=== PATIENT | male | born 1955 | race Caucasian/White ===

== ENCOUNTER 2017-06-11 10:40 | Inpatient (IN) ==
--- NOTE | 2017-06-11 10:55 | Emergency Department Report ---
Lower Extremity Injury HPI - General Stated Complaint: foot/diabetic problem Time Seen by Provider: 06/11/17 10:55 - Related Data Home Medications Medication Instructions Recorded Confirmed Cilostazol 100 mg PO BID 06/11/17 06/11/17 Insulin Lispro Protamin/Lispro 14 unit SQ BID 06/11/17 06/11/17 [Humalog Mix 75-25 Kwikpen] Allergies Allergy/AdvReac Type Severity Reaction Status Date / Time Penicillins Allergy Severe cardiac Verified 06/11/17 11:44 arrest [facility] Patient Stated Medical History Glaucoma Yes: had injections in rosemarie eys Hypertension Yes Diabetes Mellitus Type 1 Yes Other GI Yes: gastritis Hx Renal Disease Yes: states that his kidneys were giving him trouble before Course Vital Signs Temperature 98.3 F 06/11/17 10:45 Pulse Rate 107 H 06/11/17 10:45 Respiratory Rate 18 06/11/17 10:45 Blood Pressure 205/98 H 06/11/17 10:45 Pulse Oximetry 100 06/11/17 10:45 Temperature 98.2 F 06/11/17 11:45 Pulse Rate 99 06/11/17 13:30 Respiratory Rate 22 06/11/17 13:30 Blood Pressure 138/76 06/11/17 13:30 Pulse Oximetry 99 06/11/17 13:30 Extremity Injury, Lower - Lab Data Result diagrams: 06/11/17 11:30 06/11/17 11:30 Lab Results 06/11/17 06/11/17 06/11/17 Range/Units 11:30 11:30 11:30 WBC 6.2 (4.5-11.0) T/MM3 RBC 3.35 L (4.50-5.90) M/MM3 Hgb 9.6 L (13.5-17.5) GM/DL Hct 29.8 L (41-53) % MCV 89.0 (80-100) UM3 MCH 28.7 (26-34) UUG MCHC 32.2 (31-37) GM/DL RDW Std Deviation 39.6 (36.9-50.2) FL Plt Count 487 H (130-400) T/MM3 MPV 8.8 L (9.4-12.4) UM3 Immature Gran % (Auto) 0.2 (0.0-0.5) % Neut % (Auto) 59.9 (33-66) % Lymph % (Auto) 28.0 (23-45) % [place] % (Auto) 8.5 (0-9.0) % Eos % (Auto) 2.9 (0-4) % Baso % (Auto) 0.5 (0-2) % Neut # (Auto) 3.7 (1.8-7.7) T/MM3 Lymph # (Auto) 1.7 (1-4.8) T/MM3 [place] # (Auto) 0.5 (0-0.8) T/MM3 Eos # (Auto) 0.2 (0-0.5) T/MM3 Baso # (Auto) 0.0 (0-0.2) T/MM3 Abs Immat Gran (auto) 0.01 (0.00-0.03) T/MM3 Turbidity < 20 (0-20) Sodium 144 (134-144) MEQ/L Potassium 5.6 H (3.6-5) MEQ/L Chloride 104 (98-107) MEQ/L Carbon Dioxide 28 (22-30) MEQ/L Anion Gap 12 (5-15) MEQ/L BUN 29.0 H (9-20) MG/DL Creatinine 1.6 H (0.8-1.5) MG/DL GFR Calculation 44 BUN/Creatinine Ratio 18 (6-26) RATIO Glucose 274 H (75-110) MG/DL Calculated Osmolality 293 H (261-280) MOSM/KG Calcium 9.3 (8.4-10.2) MG/DL Total Bilirubin 0.40 (0.20-1.30) MG/DL Icterus Index < 2 (0-7) AST 15 L (17-59) U/L ALT 19 L (21-72) U/L Alkaline Phosphatase 101 (38-126) U/L Total Protein 9.0 H (6.3-8.2) G/DL Albumin 4.2 (3.5-5.0) G/DL Globulin 4.8 H (2.4-3.6) G/DL Albumin/Globulin Ratio 0.9 L (1.1-2.2) RATIO Plasma Lactate 1.4 (0.6-2.2) MMOL/L Procalcitonin < 0.05 NG/ML Specimen Hemolysis < 15 (0-25) Disposition Clinical Impression: Diabetic foot ulcer Qualifiers: Diabetic foot ulcer location: midfoot Diabetes mellitus type: type 1 Laterality : right Non-pressure ulcer stage: with bone involvement without evidence of necrosis Qualified Code(s): E10.621 - Type 1 diabetes mellitus with foot ulcer; L97.416 - Non-pressure chronic ulcer of right heel and midfoot with bone involvement without evidence of necrosis; L97.416 - Non-pressure chronic ulcer of right heel and midfoot with bone involvement without evidence of necrosis [place] [facility] [place] Time of Disposition: 14:11 - Seen By: physician
[2017-06-11] MEDS ORDERED: SALINE FLUSH 10ml SYRINGE IVF PRN (11:00)
[2017-06-11] MEDS ORDERED: LEVOFLOXACIN PB 750 MG/150 ML BAG IV SCH (11:15)
[2017-06-11] MEDS ORDERED: SALINE FLUSH 10ml SYRINGE ONE (12:42)
[2017-06-11] MEDS ORDERED: GADOTERIDOL 279.3mg/ml - 15ml vial IVP ONE (12:43)
--- NOTE | 2017-06-11 13:33 | Magnetic Resonance Report ---
Indication: ulcer ball 4th 5th rule out osteo PROCEDURE: MR foot RT wo/w con: Encounter: Initial Comparison: Right foot MRI dated December 19, 2013 Technique: Multiplanar multisequence MR imaging of the right foot was performed with and without contrast. Contrast: 13 mL ProHance Findings: Prior amputation of the right fourth toe. There is a rim-enhancing abscess surrounding the fifth metatarsal head and proximal phalanx of the fifth toe. This is best seen on coronal image 10 and axial images 13 and 14. This measures approximately 2.3 x 1 cm in size on the axial images. There is a cutaneous tract noted extending to the plantar foot. Edema is again noted throughout the intrinsic foot musculature. The flexor and extensor tendons are grossly intact. Mild motion artifact present. There is diffuse edema throughout the fifth metatarsal bone. Small areas of edema within the fourth metatarsal head and fourth metatarsal base. Diffusely abnormal T1 hypointense, T2 hyperintense signal and enhancement throughout the proximal phalanx of the fifth toe. There is osseous erosion or destruction of the distal fifth metatarsal shaft and head. The fourth metatarsal neck is deformed which could be due to old trauma. There is enhancement within the fourth metatarsal head and to a lesser degree the shaft and base. Diffuse enhancement throughout the fifth metatarsal bone and proximal phalanx of the fifth toe. Subtle enhancement in the fifth middle and distal phalanges. No other areas of bone edema or bone enhancement appreciated. Impression: 1. Extensive osteomyelitis with complete involvement of the fifth metatarsal bone and proximal phalanx of the fifth toe with associated abscess. There is also osteomyelitic involvement of the fourth metatarsal head. 2. Less extensive edema and enhancement within the fourth metatarsal shaft and base is also suspicious for osteomyelitis. .
[2017-06-11 13:58] VITALS: BMI 23.2
[2017-06-11] MEDS ORDERED: VANCOMYCIN - PHARMACY CONSULT MC ONE (14:19)
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
--- NOTE | 2017-06-11 14:44 | Pharmacy Consult-Antibiotics ---
Pharmacy Consult-Vancomycin - Laboratory Information WBC 6.2 T/MM3 (4.5-11.0) 06/11/17 11:30 BUN 29.0 MG/DL (9-20) H 06/11/17 11:30 Creatinine 1.6 MG/DL (0.8-1.5) H 06/11/17 11:30 Procalcitonin < 0.05 NG/ML 06/11/17 11:30 - Consult Information Mr Zuñiga is admitted with osteomyelitis. Will begin vancomycin 1750mg IV q24h. Will continue to monitor and adjust accordingly. Thank you.
[2017-06-11] MEDS ORDERED: ONDANSETRON 4 MG/2 ML INJECTION IVP PRN (15:04)
[2017-06-11] MEDS: MEROPENEM 1 GM in NS 100 ML IV SCH (15:22)
[2017-06-11] MEDS: ACETAMINOPHEN 500 MG TABLET PO SCH ×3 (15:23→23:50)
[2017-06-11] MEDS: NS 1,000 ML IV SCH (15:28)
[2017-06-11] MEDS: ENOXAPARIN 30 MG/0.3 ML INJECTION SQ SCH (15:28)
[2017-06-11] MEDS ORDERED: GLUCOSE ORAL GEL 40% 37.5gm PO PRN (16:05)
[2017-06-11] MEDS ORDERED: DEXTROSE 50% SYRINGE 50ml (1 AMP) IVP PRN (16:05)
[2017-06-11] MEDS: INSULIN NPH SQ SCH (17:58)
[2017-06-11] MEDS: LISPRO SQ SCH (17:58)
[2017-06-11] MEDS: INSULIN ASPART 100unit/ml INJECTION SQ PRN (21:56)
[2017-06-12] MEDS: MEROPENEM 1 GM in NS 100 ML IV SCH ×2 (03:08→15:56)
[2017-06-12] MEDS: ACETAMINOPHEN 500 MG TABLET PO SCH ×5 (03:56→21:13)
[2017-06-12] MEDS: NS 1,000 ML IV SCH ×3 (05:50→19:25)
[2017-06-12] MEDS: INSULIN NPH SQ SCH ×2 (09:22→17:48)
[2017-06-12] MEDS: LISPRO SQ SCH ×2 (09:22→17:48)
[2017-06-12] MEDS: ENOXAPARIN 30 MG/0.3 ML INJECTION SQ SCH (09:42)
[2017-06-12] MEDS ORDERED: NS 1,000 ML IV SCH (11:15)
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
[2017-06-12] MEDS ORDERED: MIDAZOLAM 2mg/2ml INJECTION ONE (12:52)
[2017-06-12] MEDS ORDERED: FentaNYL 100 MCG/2 ML INJECTION ONE (12:52)
--- NOTE | 2017-06-12 13:00 | Pharmacy Consult-Antibiotics ---
Pharmacy Consult-Vancomycin - Laboratory Information WBC 6.2 T/MM3 (4.5-11.0) 06/11/17 11:30 BUN 20.0 MG/DL (9-20) 06/11/17 17:02 Creatinine 0.8 MG/DL (0.8-1.5) D 06/11/17 17:02 Procalcitonin < 0.05 NG/ML 06/11/17 11:30 - Consult Information VANCOMYCIN CONSULT: day 2 61 y.o. M started on Vancomycin protocol for osteomyelitis. goal Vancomycin trough range= 15 to 20 mcg/ml. Patient has had a significant improvement in SCr since admission. Vancomycin dose adjusted based on this improvement in SCr. adjusted to Vancomycin 1,250 mg IV Q12H. Pharmacy will continue to monitor and adjust. Thank you, Raquel Nava [facility]
[2017-06-12] MEDS ORDERED: PROPOFOL 20 ML ONE (14:08)
[2017-06-12] MEDS ORDERED: PROPOFOL 500 MG/50 ML VIAL IV ONE (14:25)
--- NOTE | 2017-06-12 14:56 | Anesthesia Postoperative Note ---
- Date and Time Date: 06/12/17 Time: 14:56 - Status Patient Participated in Evaluation: Patient Participated in Person Vital Signs: Temperature 97.8 F 06/12/17 10:45 Pulse Rate 96 06/12/17 11:22 Respiratory Rate 18 06/12/17 10:45 Blood Pressure 205/93 H 06/12/17 11:22 Pulse Oximetry 98 06/12/17 10:45 Respiratory Function: Airway Patent Cardiovascular Function: Regular Pulse EKG: Sinus Rhythm Mental Status: Alert and Oriented Pain Intensity: 0 Hydration: IV Infusing Complications During Recover: None Apparent - Follow-Up Instructions Instructions: Per Surgeon
[2017-06-12] MEDS ORDERED: Oxycodone/Acetaminophen 5/325 1 TAB PO PRN (16:00)
[2017-06-12] MEDS ORDERED: HYDROMORPHONE 2 MG/ML INJECTION IVP PRN (16:00)
--- NOTE | 2017-06-12 17:43 | Progress Note ---
- Date 06/12/17 Subjective: Having pain after surgery. Otherwise doing well. Objective Vital signs: Temperature 96.0 F L 06/12/17 15:35 Pulse Rate 88 06/12/17 16:50 Respiratory Rate 18 06/12/17 16:50 Blood Pressure 169/92 H 06/12/17 16:50 Pulse Oximetry 98 06/12/17 16:50 Height/Weight/BMI: Height 5 ft 7 in Weight 67.5 kg Body Mass Index 23.2 - Constitutional Present: no acute distress - Routine Respiratory Exam Present: CTA bilaterally - Routine Cardiovascular Exam Present: RRR - Routine Abdominal Exam Present: soft, normoactive bowel sounds, non distended, non tender - Routine Extremities Exam Comments: right foot in post-operative shoe - Routine Skin Exam Comments: no new rash - Routine Neurological Exam Present: alert, oriented X3, CN II-XII intact - Routine Psychiatric Exam Present: normal affect Results - Labs CBC & Chem 7: 06/11/17 11:30 06/11/17 17:02 Assessment and Plan (1) Diabetic foot ulcer Current visit: Yes Status: Acute Assessment and Plan: Impression Diabetic foot ulcer- high likelihood of osteomyelitis Hyperkalemia- POA- 5.6 Unintentional weight loss-20 pounds in 2 months Type II diabetes Hypertension Suspect CKD- Applications Scientist on admission 1.6 Chronic back pain Plan Superficial wound culture growing staph - on vanco and merrem (pcn allergy) - follow up on surgical cultures to hopefully de-escalate ATBX tomorrow. Await surgical margins for ATBX duration. Increased pain control post-operatively Follow blood sugars. Renal function improved. Hospital Course Summary Disclaimer: The visit summary below is not to be considered part of the above Progress Note. Hospital Course: 06/11/17 Impression Diabetic foot ulcer- high likelihood of osteomyelitis Hyperkalemia- POA- 5.6 Unintentional weight loss-20 pounds in 2 months Type II diabetes Hypertension Suspect CKD- Applications Scientist on admission 1.6 Chronic back pain 06/12/17 17:43 Superficial wound culture growing staph - on vanco and merrem (pcn allergy) - follow up on surgical cultures to hopefully de-escalate ATBX tomorrow. Await surgical margins for ATBX duration. Increased pain control post-operatively Follow blood sugars. Renal function improved.
[2017-06-13] MEDS: ACETAMINOPHEN 500 MG TABLET PO SCH ×7 (00:24→23:18)
[2017-06-13] MEDS: MEROPENEM 1 GM in NS 100 ML IV SCH ×4 (00:25→23:17)
[2017-06-13] MEDS: NS 1,000 ML IV SCH ×3 (03:52→23:18)
[2017-06-13] MEDS: LISPRO SQ SCH ×2 (10:08→18:41)
[2017-06-13] MEDS: INSULIN NPH SQ SCH ×2 (10:08→18:41)
[2017-06-13] MEDS: ENOXAPARIN 30 MG/0.3 ML INJECTION SQ SCH (10:09)
--- NOTE | 2017-06-13 10:12 | Orthopedic Progress Note ---
Date: Subjective/Severity of Illness: Pt is evaluated this AM using the [employer] communication device. Pt denies having much pain and has no medical complaints or concerns this AM. He has not been up with PT but they are planning on working with him today. No discharge plans have been discussed yet. Orthopedic Objective PO Vital signs: Temperature 97.3 F 06/13/17 08:00 Pulse Rate 97 06/13/17 08:00 Respiratory Rate 16 06/13/17 08:00 Blood Pressure 195/102 H 06/13/17 08:00 Pulse Oximetry 97 06/13/17 08:00 Height and Weight: Height 5 ft 7 in Weight 147 lb 14.883 oz Body Mass Index 23.2 - Constitutional General Appearance: Present: alert, no acute distress - Respiratory Exam Present: non-labored - Extremities Exam Extremities: Present: normal capillary refill (Toes are all that are visible this AM. Dressing intact and dry.) - Surgical Site Incision: dressing intact, no drainage - Neurological Exam Present: no deficits - Wound Management Right Foot Wound Type: Diabetic Foot Ulcer Surrounding Tissue Appearance: Bright Red Drainage Description: Serosanguineous Drainage Amount: Small Primary Dressing: Gauze Pad - Labs Result Diagrams: 06/13/17 03:51 06/13/17 03:51 Abnormal lab results 06/13/17 06/13/17 Range/Units 03:51 03:51 RBC 2.91 L (4.50-5.90) M/MM3 Hgb 8.3 L D (13.5-17.5) GM/DL Hct 25.9 L D (41-53) % Plt Count 405 H (130-400) T/MM3 MPV 8.7 L (9.4-12.4) UM3 Potassium 5.2 H D (3.6-5) MEQ/L Chloride 110 H (98-107) MEQ/L Glucose 145 H (75-110) MG/DL H & H 06/13/17 Range/Units 03:51 Hgb 8.3 L D (13.5-17.5) GM/DL Hct 25.9 L D (41-53) % Orthopedic Assessment and Plan (1) Osteomyelitis of right foot Status: Acute Assessment and Plan: S/P amputation of the right 4th and 5th MT ray on 06/12/17. On IV Meropenem and Vanco. Continue per hospitalist or get ID recommendations. Recommend continuing until path report is back. ASA and SCDs for DVT coverage. Mobilize with PT. WBAT on the heel. Discharge planning per Case Management. We will need to check his foot next week in wound clinic or ortho clinic if he is discharged this weekend. - Anticoagulation Therapy Anticoagulation: ASA 81 mg PO BID x6 weeks Hospital Course Summary Disclaimer: The visit summary below is not to be considered part of the above Progress Note. Hospital Course: 06/11/17 Impression Diabetic foot ulcer- high likelihood of osteomyelitis Hyperkalemia- POA- 5.6 Unintentional weight loss-20 pounds in 2 months Type II diabetes Hypertension Suspect CKD- Physician Surgeon on admission 1.6 Chronic back pain 06/12/17 17:43 Superficial wound culture growing staph - on vanco and merrem (pcn allergy) - follow up on surgical cultures to hopefully de-escalate ATBX tomorrow. Await surgical margins for ATBX duration. Increased pain control post-operatively Follow blood sugars. Renal function improved.
[2017-06-13] MEDS ORDERED: FUROSEMIDE 20 MG/2 ML INJECTION IVP ONE (12:17)
--- NOTE | 2017-06-13 12:30 | Progress Note ---
<Raegan Harvey - Last Filed: 06/13/17 13:19> - Date 06/13/17 Subjective: Oscar is seen this morning in follow up for his recent amputation to his right 4th and 5th metatarsal secondary to osteomyelitis on 06/12/17 as well as his uncontrolled diabetes. He is seen while sitting in his recliner, playing on his phone and watching TV. He denies any complaints or concerns including no chest pain, shortness of breath, abdominal pain, nausea, vomiting or dysuria. He does admit to some pain to his right foot, currently 5/10. He states he does not have much of an appetite but states that his bowels are moving. Labs revealed continued down trending of hemoglobin currently at 8.3. He denies any symptoms with his anemia including no palpitations, dizziness, lightheadedness or syncope. He continues on treatment for his osteomyelitis with Vancomycin and Merrem. Objective Vital signs: Temperature 97.3 F 06/13/17 08:00 Pulse Rate 97 06/13/17 08:00 Respiratory Rate 16 06/13/17 08:00 Blood Pressure 195/102 H 06/13/17 08:00 Pulse Oximetry 97 06/13/17 08:00 Height/Weight/BMI: Height 5 ft 7 in Weight 147 lb 14.883 oz Body Mass Index 23.2 - Constitutional Present: no acute distress, well nourished, well developed, cooperative - Routine HEENT Exam Head: Present: normocephalic, atraumatic Eye: Present: PERRL. Absent: conjunctival icterus ENT: Present: mucous membranes moist - Routine Respiratory Exam Present: CTA bilaterally. Absent: rales, respiratory distress, rhonchi, stridor , wheezes, crackles - Routine Cardiovascular Exam Present: RRR, S1, S2, no murmur - Routine Abdominal Exam Present: soft, normoactive bowel sounds, non tender, distended - Routine Extremities Exam Present: no edema, full ROM, pulses intact Comments: bandage to right foot clean, dry and intact; amputation site not evaluated during exam. - Routine Back/Spine/Pelvis Exam Back/Spine: Present: full ROM. Absent: vertebral tenderness - Routine Musculoskeletal Exam Musculoskeletal: Present: no clubbing or cyanosis, normal strength, moving extremities well - Routine Skin Exam Present: dry, warm. Absent: jaundice Comments: afebrile - Routine Neurological Exam Present: alert, oriented X3, moving all extremities, hearing grossly intact, normal speech. Absent: facial asymmetry - Routine Lymphatic Exam Lymphatic: Absent: lymphedema - Routine Psychiatric Exam Present: normal affect, cooperative Results - Labs CBC & Chem 7: 06/13/17 03:51 06/13/17 03:51 Assessment and Plan (1) Diabetic foot ulcer Current visit: Yes Status: Acute Assessment and Plan: Impression S/P amputation of 4th and 5th metatarsal on right foot by Dr. Gaffney - 06/12/17. Diabetic foot ulcer and osteomyelitis. Hyperkalemia- POA- 5.6 Unintentional weight loss-20 pounds in 2 months Type II diabetes, uncontrolled Hypertension, uncontrolled. CKD - stage III. Chronic back pain Protein calorie malnutrition, mild. GERD Plan - 06/13/17 (Mirakian) POD #1. Overall, Oscar appears to be doing well. Pain is well controlled. Continue pain medications with bowel motivation. Wound culture revealed multi-drug resistant MRSA. Based on sensitivities, will continue current antimicrobial treatment with Vancomycin and Merrem. Awaiting additional treatment recommendations from Dr. Juares. Appreciate her time and expertise. Will discuss with Dr. Glass possible discontinuation of merrem. Blood sugars remain variable. A1c significantly elevated at 12.7. Will continue current regimen with Humalog 75/25 10 units BID with sliding scale insulin as needed. Continue to monitor blood sugars closely. May consider consult to Dr. Rose for additional recommendations. Blood pressure elevated. History of hypertension without current treatment listed. Given comorbidities, will start lisinopril 10mg daily and metoprolol 12.5mg BID. Will place on telemetry to monitor cardiac function closely. Mild hyperkalemia noted with potassium at 5.2. History of hyperkalemia prior to admission. Will give lasix 20 IV x 1 dose now and recheck BMp in AM. Pre-ablumin low at 13.5 concerning for protein calorie malnutrition. Will consult dietary for additional recommendations. Encourage incentive spirometry for pulmonary toileting. Encourage participation in therapy to improve functional abilities. Hemoglobin continues to trend down at 8.3. Patient remains asymptomatic. Continue to monitor acute blood loss anemia. No evidence of acute bleeding. Recheck CBC and BMP in AM to monitor blood counts, electrolytes and renal function. DVT Prophylaxis: SCD's, Lovenox Resuscitation Status: Full Code - Time spent with patient Time with patient PN: 35 minutes Hospital Course Summary Disclaimer: The visit summary below is not to be considered part of the above Progress Note. Hospital Course: 06/11/17 Impression S/P amputation of 4th and 5th metatarsal on right foot by Dr. Gaffney - 06/12/17. Diabetic foot ulcer and osteomyelitis. Hyperkalemia- POA- 5.6 Unintentional weight loss-20 pounds in 2 months Type II diabetes, uncontrolled Hypertension, uncontrolled. CKD - stage III. Chronic back pain Protein calorie malnutrition, mild. GERD 06/12/17 17:43 Superficial wound culture growing staph - on vanco and merrem (pcn allergy) - follow up on surgical cultures to hopefully de-escalate ATBX tomorrow. Await surgical margins for ATBX duration. Increased pain control post-operatively Follow blood sugars. Renal function improved. Plan - 06/13/17 (Mirakian) POD #1. Overall, Oscar appears to be doing well. Pain is well controlled. Continue pain medications with bowel motivation. Wound culture revealed multi-drug resistant MRSA. Based on sensitivities, will continue current antimicrobial treatment with Vancomycin and Merrem. Awaiting additional treatment recommendations from Dr. Juares. Appreciate her time and expertise. Will discuss with Dr. Glass possible discontinuation of merrem. Blood sugars remain variable. A1c significantly elevated at 12.7. Will continue current regimen with Humalog 75/25 10 units BID with sliding scale insulin as needed. Continue to monitor blood sugars closely. May consider consult to Dr. Rose for additional recommendations. Blood pressure elevated. History of hypertension without current treatment listed. Given comorbidities, will start lisinopril 10mg daily and metoprolol 12.5mg BID. Will place on telemetry to monitor cardiac function closely. Mild hyperkalemia noted with potassium at 5.2. History of hyperkalemia prior to admission. Will give lasix 20 IV x 1 dose now and recheck BMp in AM. Pre-ablumin low at 13.5 concerning for protein calorie malnutrition. Will consult dietary for additional recommendations. Encourage incentive spirometry for pulmonary toileting. Encourage participation in therapy to improve functional abilities. Hemoglobin continues to trend down at 8.3. Patient remains asymptomatic. Continue to monitor acute blood loss anemia. No evidence of acute bleeding. Recheck CBC and BMP in AM to monitor blood counts, electrolytes and renal function. <Rhoda Glass - Last Filed: 06/13/17 14:26> - Date 06/13/17 Objective Vital signs: Results - Labs CBC & Chem 7: 06/13/17 03:51 06/13/17 03:51 Assessment and Plan (1) Diabetic foot ulcer Problem details: With osteomyelitis Current visit: Yes Status: Acute Assessment and Plan: I have independently evaluated and examined this patient. I reviewed the chart, the patient's history, and the [employer]ARN WE[employer]ENGTH TESTER/PA's documented findings as above. We discussed and formulated the assessment and plan as above with additions as below: Mr. Zuñiga describes a little pain in his left foot but had no other concerns when seen. Patient is alert, NAD Respirations nonlabored, good airflow, breath sounds clear Regular rhythm, extremities without edema, right foot dressed Surgical cultures pending; wound culture-MRSA Medications for blood pressure discussed as above. Await surgical cultures before modification in antibiotic regimen. Duration of antibiotics will depend on surgical margins. Lovenox increased to 40 mg daily for DVT prophylaxis. WBAT, ambulated without assistive device with therapy earlier today. In addition to above diagnoses please add: #1 acute/chronic normocytic anemia # 2 thrombocytosis, likely reactive; change [id number] with multiple complications and correct CKD to stage II Discussed with nursing who provide supplemental history, d/w Pharm D. MRI reviewed by myself. Hospital Course Summary Disclaimer: The visit summary below is not to be considered part of the above Progress Note.
[2017-06-13] MEDS: INSULIN ASPART 100unit/ml INJECTION SQ PRN ×2 (13:28→21:38)
[2017-06-13] MEDS: LISINOPRIL 10 MG TABLET PO SCH (13:36)
--- NOTE | 2017-06-13 13:56 | Operative Note ---
DATE OF SURGERY 06/12/2017 PREOPERATIVE DIAGNOSIS Right foot fourth and fifth metatarsal osteomyelitis. POSTOPERATIVE DIAGNOSIS Right foot fourth and fifth metatarsal osteomyelitis. PROCEDURE Right fourth fifth ray amputations. SURGEON Karrie Gaffney MD ANESTHESIA TIVA COMPLICATIONS None. TOURNIQUET TIME Please see anesthetic record. FLUIDS Please see anesthetic record. DESCRIPTION OF PROCEDURE Mr. Zuñiga and his right foot were identified and marked in the preoperative holding area. He was brought back to the operating suite and placed supine on the operating table. He was placed under general anesthesia. The right lower extremity was prepped and draped in my normal sterile fashion. Time-out was performed. The patient is on scheduled antibiotics. He had previous amputation to the fourth toe. He had open wound proximal to the previous fourth toe amputation. He also has a large diabetic foot ulcer on the plantar aspect over the fourth metatarsal. Both these wounds measured deep, greater than 2 cm. I started by connecting the dorsal to plantar wound at the most medial aspect of the wounds to connect them. I then continued the skin incision laterally to encompass the fifth toe and approximately 2 cm proximal to the fifth toe. With this, I removed the entire fifth toe through the fifth MTP joint. The fifth metatarsal itself was rather brittle and easily broke into several pieces. I then completed amputation of the fifth metatarsal using a pair of rongeurs. The fourth metatarsal did appear to be in better condition. It was removed with dissection sharply around the soft tissue, releasing the interarticular tarsal ligament. Its removal was also completed with a rongeur proximally. I did have to increase my dissection laterally in order to get the entire fifth metatarsal and also to allow for better skin closure. I cut back another probably 3 cm. After this, the wound was thoroughly irrigated with normal saline. The tourniquet was let down. Hemostasis was obtained with electrocautery. I did not see any signs of abscess and the soft tissue itself did not show any signs of necrosis. I did have to debulk some of the soft tissue anteriorly and with this I was able to get the skin edges reapproximated with 3-0 nylon suture. The first two were placed in a horizontal mattress fashion and then the remaining were placed in a simple interrupted fashion. The foot was cleaned and a sterile dressing was placed. The drapes were removed. He was allowed to awaken from general anesthesia and taken to the recovery room under the care of Anesthesia. He tolerated the procedure well. There were no complications. JADON
[2017-06-13] MEDS: ATORVASTATIN 20 MG TABLET PO SCH (21:37)
[2017-06-13] MEDS: ASPIRIN *EC* 81 MG TABLET PO SCH (21:37)
[2017-06-14] MEDS: NS 1,000 ML IV SCH ×2 (04:09→20:49)
[2017-06-14] MEDS: ACETAMINOPHEN 500 MG TABLET PO SCH ×6 (04:33→22:47)
[2017-06-14] MEDS: INSULIN ASPART 100unit/ml INJECTION SQ PRN ×4 (06:10→20:52)
[2017-06-14] MEDS: ENOXAPARIN 40 MG/0.4 ML INJECTION SQ SCH (08:15)
[2017-06-14] MEDS: LISINOPRIL 10 MG TABLET PO SCH (08:15)
[2017-06-14] MEDS: ASPIRIN *EC* 81 MG TABLET PO SCH (08:15)
[2017-06-14] MEDS: MEROPENEM 1 GM in NS 100 ML IV SCH ×2 (08:15→15:09)
[2017-06-14] MEDS: LISPRO SQ SCH (08:32)
[2017-06-14] MEDS: INSULIN NPH SQ SCH (08:32)
--- NOTE | 2017-06-14 11:03 | Progress Note ---
<BryanLeonila D - Last Filed: 06/14/17 11:00> - Date 06/14/17 Subjective: Patient is seen today in follow up. He sleeps during most of exam. He does awaken and reports feeling well. Denies pain. Chart reviewed for collateral information. Objective Vital signs: Temperature 96.7 F L 06/14/17 07:40 Pulse Rate 82 06/14/17 08:27 Respiratory Rate 20 06/14/17 07:40 Blood Pressure 135/80 06/14/17 07:40 Pulse Oximetry 97 06/14/17 07:40 Height/Weight/BMI: Height 1.7 m Weight 68.1 kg Body Mass Index 23.2 - Constitutional Present: no acute distress, well nourished, well developed, average body habitus - Routine HEENT Exam Head: Present: normocephalic, atraumatic Eye: Present: EOMI, PERRL ENT: Present: mucous membranes moist - Routine Respiratory Exam Present: decreased breath sounds, CTA bilaterally. Absent: rales, rhonchi, wheezes - Routine Cardiovascular Exam Present: RRR, S1, S2, no murmur - Routine Abdominal Exam Present: soft, normoactive bowel sounds, non distended, non tender - Routine Extremities Exam Present: no edema, non tender - Routine Musculoskeletal Exam Musculoskeletal: Present: normal strength, moving extremities well - Routine Skin Exam Present: intact, dry, warm - Routine Neurological Exam Present: alert, moving all extremities - Routine Psychiatric Exam Present: cooperative Results - Labs CBC & Chem 7: 06/14/17 03:30 06/14/17 03:30 Assessment and Plan (1) Diabetic foot ulcer Problem details: With osteomyelitis Current visit: Yes Status: Acute Assessment and Plan: Impression Diabetic foot ulcer- osteomyelitis/+MRSA (Pathology pending) s/p Right fourth fifth ray amputations. 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 Schreiber covering *POD #2 Continue Meropenem and Vanco with pharmacy following. Await pathology prior to narrowing therapy. Could potentially use Doxycycline on dismissal. *DM2, uncontrolled. A1c 12.6 Will change insulin to 70/30 NPH/Reg as he will likely need to be dismissed on this given unfunded status. Continue sliding scale. Increased him scheduled dosing to 12 units BID. *JULIA now resolved- SCr back to normal. Continue Lisinopril. *HTN controlled. Continue statin. *DVT prophylaxis- On LMWH. Decrease ASA to 81mg daily from BID. DVT Prophylaxis: Lovenox Resuscitation Status: Full Code - Time spent with patient Time with patient PN: 30 minutes Hospital Course Summary Disclaimer: The visit summary below is not to be considered part of the above Progress Note. Hospital Course: 06/11/17 Impression S/P amputation of 4th and 5th metatarsal on right foot by Dr. Gaffney - 06/12/17. Diabetic foot ulcer and osteomyelitis. Hyperkalemia- POA- 5.6 Unintentional weight loss-20 pounds in 2 months Type II diabetes, uncontrolled Hypertension, uncontrolled. CKD - stage III. Chronic back pain Protein calorie malnutrition, mild. GERD 06/12/17 17:43 Superficial wound culture growing staph - on vanco and merrem (pcn allergy) - follow up on surgical cultures to hopefully de-escalate ATBX tomorrow. Await surgical margins for ATBX duration. Increased pain control post-operatively Follow blood sugars. Renal function improved. Plan - 06/13/17 (Mirakian) POD #1. Overall, Oscar appears to be doing well. Pain is well controlled. Continue pain medications with bowel motivation. Wound culture revealed multi-drug resistant MRSA. Based on sensitivities, will continue current antimicrobial treatment with Vancomycin and Merrem. Awaiting additional treatment recommendations from Dr. Juares. Appreciate her time and expertise. Will discuss with Dr. Glass possible discontinuation of merrem. Blood sugars remain variable. A1c significantly elevated at 12.7. Will continue current regimen with Humalog 75/25 10 units BID with sliding scale insulin as needed. Continue to monitor blood sugars closely. May consider consult to Dr. Rose for additional recommendations. Blood pressure elevated. History of hypertension without current treatment listed. Given comorbidities, will start lisinopril 10mg daily and metoprolol 12.5mg BID. Will place on telemetry to monitor cardiac function closely. Mild hyperkalemia noted with potassium at 5.2. History of hyperkalemia prior to admission. Will give lasix 20 IV x 1 dose now and recheck BMp in AM. Pre-ablumin low at 13.5 concerning for protein calorie malnutrition. Will consult dietary for additional recommendations. Encourage incentive spirometry for pulmonary toileting. Encourage participation in therapy to improve functional abilities. Hemoglobin continues to trend down at 8.3. Patient remains asymptomatic. Continue to monitor acute blood loss anemia. No evidence of acute bleeding. Recheck CBC and BMP in AM to monitor blood counts, electrolytes and renal function. 06/14/17 11:13 06/14/17 Dr. Schreiber covering *POD #2 Continue Meropenem and Vanco with pharmacy following. Await pathology prior to narrowing therapy. Could potentially use Doxycycline on dismissal. *DM2, uncontrolled. A1c 12.6 Will change insulin to 70/30 NPH/Reg as he will likely need to be dismissed on this given unfunded status. Continue sliding scale. Increased him scheduled dosing to 12 units BID. *JULIA now resolved- SCr back to normal. Continue Lisinopril. *HTN controlled. Continue statin. *DVT prophylaxis- On LMWH. Decrease ASA to 81mg daily from BID. <Rhoda Glass - Last Filed: 06/14/17 15:33> - Date 06/14/17 Results - Labs CBC & Chem 7: 06/14/17 03:30 06/14/17 03:30 Assessment and Plan (1) Diabetic foot ulcer Problem details: With osteomyelitis Current visit: Yes Status: Acute Assessment and Plan: I have independently evaluated and examined this patient. I reviewed the chart, the patient's history, and the M[employer] HOUSE LOADER/PA's documented findings as above. We discussed and formulated the assessment and plan as above with additions as below: Please note patient is not being seen by Dr. Schreiber but instead by myself. Patient was alert when seen and reported no pain in his foot. Nursing reported minimal pain medication has been needed. Oral intake is good and he has ambulated in the room today without difficulty. Patient denied dyspnea. NAD, alert Respirations nonlabored with good airflow Abdomen is soft, nontender Discussed with orthro-no bone culture obtained but pathology pending for margins -hopefully available tomorrow. Given staph aureus in wound culture will discontinue gram-negative culture. Fasting glucose 173 with 2 hour after meals 233; insulin modified as above. Blood pressure improved. In addition to above problems please add: #1 acute on chronic anemia Hospital Course Summary Disclaimer: The visit summary below is not to be considered part of the above Progress Note. Addendum entered and electronically signed by Leonila Adams APRN 06/14/17 11:14 : Anemia- Likely reactive. Add iron/B Vitamin supplement.
--- NOTE | 2017-06-14 14:06 | Pharmacy Consult-Antibiotics ---
Pharmacy Consult-Vancomycin - Laboratory Information WBC 6.0 T/MM3 (4.5-11.0) 06/14/17 03:30 BUN 14.0 MG/DL (9-20) 06/14/17 03:30 Creatinine 1.1 MG/DL (0.8-1.5) 06/14/17 03:30 Procalcitonin < 0.05 NG/ML 06/11/17 11:30 Vancomycin Trough 23.64 UG/ML (15-20) H* 06/14/17 03:30 - Consult Information VANCOMYCIN CONSULT: day 4 61 y.o. male on Vancomycin for osteomyelitis. goal trough range= 15 to 20 mcg/ml , Vancomycin Trough = 23.64 mcg/ml. Today's SCr = 1.1 mg/dl. Will adjust dose to Vancomycin 1,500 mg IV q18hrs. Will continue to monitor and make adjustments accordingly. Thank you. Raquel Nava [facility]
[2017-06-14] MEDS: INSULIN NPH/REG 70/30 INJECTION SQ SCH (18:42)
[2017-06-14] MEDS: ATORVASTATIN 20 MG TABLET PO SCH (20:07)
[2017-06-14] MEDS: NIFEREX FORTE 150 CAPSULE PO SCH (20:07)
[2017-06-15] MEDS: ACETAMINOPHEN 500 MG TABLET PO SCH ×5 (04:16→18:22)
[2017-06-15] MEDS: INSULIN ASPART 100unit/ml INJECTION SQ PRN ×4 (06:27→20:43)
[2017-06-15] MEDS: LISINOPRIL 10 MG TABLET PO SCH (08:17)
[2017-06-15] MEDS: NIFEREX FORTE 150 CAPSULE PO SCH ×2 (08:18→20:44)
[2017-06-15] MEDS: INSULIN NPH/REG 70/30 INJECTION SQ SCH ×2 (08:18→18:46)
[2017-06-15] MEDS: ENOXAPARIN 40 MG/0.4 ML INJECTION SQ SCH (08:18)
[2017-06-15] MEDS: ASPIRIN *EC* 81 MG TABLET PO SCH (08:29)
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
--- NOTE | 2017-06-15 10:30 | Progress Note ---
<Candice Oakes - Last Filed: 06/15/17 10:26> - Date 06/15/17 Subjective: Patient is seen today in conjunction with Dr. Juares through the online leather stitcher. Patient has no complaints, specifically denies fever, pain, chest pain, shortness of breath, nausea and vomiting. He had a bowel movement yesterday. Dr. Juares discussed with him that he may need to have outpatient IV antibiotics and this may require a PICC line. Patient states he would be able to come in daily for outpatient IV infusions if necessary. Objective Vital signs: Temperature 97.1 F 06/15/17 08:00 Pulse Rate 80 06/15/17 08:31 Respiratory Rate 16 06/15/17 08:00 Blood Pressure 140/71 H 06/15/17 08:00 Pulse Oximetry 98 06/15/17 08:00 Height/Weight/BMI: Height 1.7 m Weight 67.9 kg Body Mass Index 23.2 - Constitutional Present: no acute distress, well nourished, well developed - Routine Respiratory Exam Present: CTA bilaterally. Absent: wheezes - Routine Cardiovascular Exam Present: RRR. Absent: murmur - Routine Abdominal Exam Present: soft, normoactive bowel sounds, non distended. Absent: tenderness - Routine Extremities Exam Present: no edema, normal capillary refill Comments: R foot with héctor wrap and boot. - Routine Skin Exam Present: dry, warm - Routine Neurological Exam Present: alert, oriented X3 - Routine Lymphatic Exam Lymphatic: Absent: adenopathy - Routine Psychiatric Exam Present: normal affect, cooperative Results - Labs CBC & Chem 7: 06/15/17 07:19 06/15/17 07:19 Microbiology Results: wound culture - + MRSA Blood cultures neg thus far Assessment and Plan (1) Diabetic foot ulcer Problem details: With osteomyelitis Current visit: Yes Status: Acute Assessment and Plan: Impression: Acute on chronic anemia Osteomyelitis R 4th and 5th metatarsal bones, and proximal phalanx of the fifth toe with associated Abscess, s/p amputation R 4th and 5th ray amputations 06/12/17. Superficial wound culture with MRSA. DM II, poorly controlled (Hgb A1c 12.6). Peripheral neuropathy secondary to diabetes. HTN. PCN allergy (tachycardia), however, per records, he has taken Augmentin prescribed by Dr. Mina for 2 weeks. Chronic back pain Suspect CK D-creatinine on admission 1.6 [id number]-EWQ-0.6 Plan: Per Dr. Juares: Continue Vancomycin. With his h/o poorly controlled DM, she would favor more aggressive IV antibiotics until the pathology margins are documented to be negative. She recommends cipro and flagyl orally, since he was on Invanz for 10 days prior to this wound culture. He could potentially be changed to Vancomycin 2gm IV daily for ease of outpatient infusion. As surgical path report may be resulted today, will hold off on starting a PICC line. Patient is agreeable to PICC if needed. Also reports he will have the ability to come in for daily infusions. He was started on iron yesterday for his acute on chronic anemia. Hemoglobin is stable. Insulin switched to NPH/regular 70/30 for cost savings. This change was made last evening, so we'll need to trend blood sugars out a bit more prior to adjusting. Hospital Course Summary Disclaimer: The visit summary below is not to be considered part of the above Progress Note. Hospital Course: Plan: Acute on chronic anemia Osteomyelitis R 4th and 5th metatarsal bones, and proximal phalanx of the fifth toe with associated Abscess, s/p amputation R 4th and 5th ray amputations 06/12/17. Superficial wound culture with MRSA. DM II, poorly controlled (Hgb A1c 12.6). Peripheral neuropathy secondary to diabetes. HTN. PCN allergy (tachycardia), however, per records, he has taken Augmentin prescribed by Dr. Mina for 2 weeks. Chronic back pain Suspect CK D-creatinine on admission 1.6 [id number]-QSU-4.6 06/12/17 Superficial wound culture growing staph - on vanco and merrem (pcn allergy) - follow up on surgical cultures to hopefully de-escalate ATBX tomorrow. Await surgical margins for ATBX duration. Increased pain control post-operatively Follow blood sugars. Renal function improved. 06/13/17 POD #1. Overall, Oscar appears to be doing well. Pain is well controlled. Continue pain medications with bowel motivation. Wound culture revealed multi-drug resistant MRSA. Based on sensitivities, will continue current antimicrobial treatment with Vancomycin and Merrem. Awaiting additional treatment recommendations from Dr. Juares. Appreciate her time and expertise. Will discuss with Dr. Glass possible discontinuation of merrem. Blood sugars remain variable. A1c significantly elevated at 12.7. Will continue current regimen with Humalog 75/25 10 units BID with sliding scale insulin as needed. Continue to monitor blood sugars closely. May consider consult to Dr. Rose for additional recommendations. Blood pressure elevated. History of hypertension without current treatment listed. Given comorbidities, will start lisinopril 10mg daily and metoprolol 12.5mg BID. Will place on telemetry to monitor cardiac function closely. Mild hyperkalemia noted with potassium at 5.2. History of hyperkalemia prior to admission. Will give lasix 20 IV x 1 dose now and recheck BMp in AM. Pre-ablumin low at 13.5 concerning for protein calorie malnutrition. Will consult dietary for additional recommendations. Encourage incentive spirometry for pulmonary toileting. Encourage participation in therapy to improve functional abilities. Hemoglobin continues to trend down at 8.3. Patient remains asymptomatic. Continue to monitor acute blood loss anemia. No evidence of acute bleeding. Recheck CBC and BMP in AM to monitor blood counts, electrolytes and renal function. 06/14/17 POD#2 *POD #2 Continue Meropenem and Vanco with pharmacy following. Await pathology prior to narrowing therapy. Could potentially use Doxycycline on dismissal. *DM2, uncontrolled. A1c 12.6 Will change insulin to 70/30 NPH/Reg as he will likely need to be dismissed on this given unfunded status. Continue sliding scale. Increased him scheduled dosing to 12 units BID. *JULIA now resolved- SCr back to normal. Continue Lisinopril. *HTN controlled. Continue statin. *DVT prophylaxis- On LMWH. Decrease ASA to 81mg daily from BID. 06/15/17 POD#[address] Juares: Continue Vancomycin. With his h/o poorly controlled DM, she would favor more aggressive IV antibiotics until the pathology margins are documented to be negative. She recommends cipro and flagyl orally, since he was on Invanz for 10 days prior to this wound culture. He could potentially be changed to Vancomycin 2gm IV daily for ease of outpatient infusion. As surgical path report may be resulted today, will hold off on starting a PICC line. Patient is agreeable to PICC if needed. Also reports he will have the ability to come in for daily infusions. He was started on iron yesterday for his acute on chronic anemia. Hemoglobin is stable. Insulin switched to NPH/regular 70/30 for cost savings. This change was made last evening, so we'll need to trend blood sugars out a bit more prior to adjusting. <Rhoda Glass - Last Filed: 06/15/17 17:19> - Date 06/15/17 Objective Vital signs: Results - Labs CBC & Chem 7: 06/15/17 07:19 06/15/17 07:19 Assessment and Plan (1) Diabetic foot ulcer Problem details: With osteomyelitis Current visit: Yes Status: Acute Assessment and Plan: I have independently evaluated and examined this patient. I reviewed the chart, the patient's history, and the ETHYLBENZENE CONVERTER OPERATOR/PA's documented findings as above. We discussed and formulated the assessment and plan as above with additions as below: Patient was seen with his daughter at the bedside. He denied dyspnea, nausea, or pain. Lungs are clear with good airflow, cardiac rhythm is regular There is no peripheral edema, lateral aspect of the right foot is wrapped. CRP 55.4; but sugars remain moderately elevated with fasting 243 today and postprandials 281 and 187 Pathology reviewed-suggests inflammation at margins; discussed with Dr. Juares. PICC line placed; Cipro/metronidazole initiated orally for expanded coverage- discussed with Dr. Juares. Anticipate 6 weeks vancomycin, pharmacy has recalculated daily dose at 2.5 g- initial daily dose given at 2 PM today. Case management working on assistance for other medications. Insulin increased to 15 units twice daily. Blood pressures remain elevated, lisinopril increased to 20 mg daily. Anticipate discharge tomorrow. Multiple discussions with case management and nursing throughout the day. Resuscitation Status: Full Code Hospital Course Summary Disclaimer: The visit summary below is not to be considered part of the above Progress Note.
[2017-06-15] MEDS: MetroNIDAZOLE 500 MG TABLET PO SCH ×2 (10:35→18:22)
[2017-06-15] MEDS: CIPROFLOXACIN 500 MG TABLET PO SCH ×2 (10:35→20:44)
--- NOTE | 2017-06-15 12:09 | Pharmacy Consult-Antibiotics ---
Pharmacy Consult-Vancomycin - Laboratory Information WBC 5.7 T/MM3 (4.5-11.0) 06/15/17 07:19 BUN 12.0 MG/DL (9-20) 06/15/17 07:19 Creatinine 1.0 MG/DL (0.8-1.5) 06/15/17 07:19 Procalcitonin < 0.05 NG/ML 06/11/17 11:30 Vancomycin Trough 23.64 UG/ML (15-20) H* 06/14/17 03:30 - Consult Information Discussed vancomycin therapy with Dr Juares. Will begin vancomycin 2500mg IV q24h. Will monitor closely and run the vancomycin doses in over 3 hours. Thank you.
[2017-06-15] MEDS: VANCOMYCIN 2,500 MG in NS 500ml 500 ML IV SCH (14:30)
[2017-06-15] MEDS ORDERED: LISINOPRIL 20 MG TABLET PO SCH (17:16)
--- NOTE | 2017-06-15 18:05 | Orthopedic Progress Note ---
Date: Subjective/Severity of Illness: Pt seen by Dr Gaffney and myself around noon. Pt is doing fairly well. Pain is not much of an issue. Dressing have been dry. He was seen by Dr Juares today. Orthopedic Objective PO Vital signs: Temperature 96.0 F L 06/15/17 15:25 Pulse Rate 83 06/15/17 15:38 Respiratory Rate 18 06/15/17 15:25 Blood Pressure 168/81 H 06/15/17 15:25 Pulse Oximetry 99 06/15/17 15:25 Height and Weight: Height 5 ft 7 in Weight 149 lb 11.102 oz Body Mass Index 23.2 - Constitutional General Appearance: Present: alert, no acute distress - Respiratory Exam Present: non-labored - Extremities Exam Extremities: Present: normal capillary refill - Surgical Site Incision: dressing intact, no drainage, other (New dressing applied. Wound looks good. Sutures in place.) - Neurological Exam Present: no deficits - Psychiatric Exam Present: alert - Wound Management Right Foot Wound Type: Diabetic Foot Ulcer Surrounding Tissue Appearance: Bright Red Drainage Description: Serosanguineous Drainage Amount: Small Primary Dressing: Gauze Pad - Labs Result Diagrams: 06/15/17 07:19 06/15/17 07:19 Abnormal lab results 06/15/17 06/15/17 Range/Units 07:19 07:19 RBC 2.85 L (4.50-5.90) M/MM3 Hgb 8.1 L (13.5-17.5) GM/DL Hct 25.4 L (41-53) % MPV 8.4 L (9.4-12.4) UM3 Eos % (Auto) 4.8 H (0-4) % Glucose 208 H (75-110) MG/DL C-Reactive Protein 55.4 H (0-9) MG/L H & H 06/13/17 06/14/17 06/15/17 Range/Units 03:51 03:30 07:19 Hgb 8.3 L D 8.1 L 8.1 L (13.5-17.5) GM/DL Hct 25.9 L D 24.9 L 25.4 L (41-53) % Orthopedic Assessment and Plan (1) Osteomyelitis of right foot Status: Acute Assessment and Plan: S/P amputation of the right 4th and 5th MT ray on 06/12/17. Antibiotics as outlined by Dr Juares. ASA and SCDs for DVT coverage. Mobilize with PT. WBAT on the heel. Discharge planning per Case Management. Hospital Course Summary Disclaimer: The visit summary below is not to be considered part of the above Progress Note. Hospital Course: Plan: Acute on chronic anemia Osteomyelitis R 4th and 5th metatarsal bones, and proximal phalanx of the fifth toe with associated Abscess, s/p amputation R 4th and 5th ray amputations 06/12/17. Superficial wound culture with MRSA. DM II, poorly controlled (Hgb A1c 12.6). Peripheral neuropathy secondary to diabetes. HTN. PCN allergy (tachycardia), however, per records, he has taken Augmentin prescribed by Dr. Mina for 2 weeks. Chronic back pain Suspect CK D-creatinine on admission 1.6 Vgsujmtnsrzx-PEW-2.6 06/12/17 Superficial wound culture growing staph - on vanco and merrem (pcn allergy) - follow up on surgical cultures to hopefully de-escalate ATBX tomorrow. Await surgical margins for ATBX duration. Increased pain control post-operatively Follow blood sugars. Renal function improved. 06/13/17 POD #1. Overall, Oscar appears to be doing well. Pain is well controlled. Continue pain medications with bowel motivation. Wound culture revealed multi-drug resistant MRSA. Based on sensitivities, will continue current antimicrobial treatment with Vancomycin and Merrem. Awaiting additional treatment recommendations from Dr. Juares. Appreciate her time and expertise. Will discuss with Dr. Glass possible discontinuation of merrem. Blood sugars remain variable. A1c significantly elevated at 12.7. Will continue current regimen with Humalog 75/25 10 units BID with sliding scale insulin as needed. Continue to monitor blood sugars closely. May consider consult to Dr. Rose for additional recommendations. Blood pressure elevated. History of hypertension without current treatment listed. Given comorbidities, will start lisinopril 10mg daily and metoprolol 12.5mg BID. Will place on telemetry to monitor cardiac function closely. Mild hyperkalemia noted with potassium at 5.2. History of hyperkalemia prior to admission. Will give lasix 20 IV x 1 dose now and recheck BMp in AM. Pre-ablumin low at 13.5 concerning for protein calorie malnutrition. Will consult dietary for additional recommendations. Encourage incentive spirometry for pulmonary toileting. Encourage participation in therapy to improve functional abilities. Hemoglobin continues to trend down at 8.3. Patient remains asymptomatic. Continue to monitor acute blood loss anemia. No evidence of acute bleeding. Recheck CBC and BMP in AM to monitor blood counts, electrolytes and renal function. 06/14/17 POD#2 *POD #2 Continue Meropenem and Vanco with pharmacy following. Await pathology prior to narrowing therapy. Could potentially use Doxycycline on dismissal. *DM2, uncontrolled. A1c 12.6 Will change insulin to 70/30 NPH/Reg as he will likely need to be dismissed on this given unfunded status. Continue sliding scale. Increased him scheduled dosing to 12 units BID. *JULIA now resolved- SCr back to normal. Continue Lisinopril. *HTN controlled. Continue statin. *DVT prophylaxis- On LMWH. Decrease ASA to 81mg daily from BID. 06/15/17 POD#[address] Juares: Continue Vancomycin. With his h/o poorly controlled DM, she would favor more aggressive IV antibiotics until the pathology margins are documented to be negative. She recommends cipro and flagyl orally, since he was on Invanz for 10 days prior to this wound culture. He could potentially be changed to Vancomycin 2gm IV daily for ease of outpatient infusion. As surgical path report may be resulted today, will hold off on starting a PICC line. Patient is agreeable to PICC if needed. Also reports he will have the ability to come in for daily infusions. He was started on iron yesterday for his acute on chronic anemia. Hemoglobin is stable. Insulin switched to NPH/regular 70/30 for cost savings. This change was made last evening, so we'll need to trend blood sugars out a bit more prior to adjusting.
[2017-06-15] MEDS: ATORVASTATIN 20 MG TABLET PO SCH (20:44)
[2017-06-15] MEDS: NS 1,000 ML IV SCH (20:46)
[2017-06-16] MEDS: ACETAMINOPHEN 500 MG TABLET PO SCH ×6 (00:02→18:39)
--- NOTE | 2017-06-16 07:51 | Orthopedic Progress Note ---
Date: Subjective/Severity of Illness: Sleeping comfortably. No issues reported by family or nurse. Orthopedic Objective PO Vital signs: Temperature 97.9 F 06/16/17 03:54 Pulse Rate 74 06/16/17 03:54 Respiratory Rate 16 06/16/17 03:54 Blood Pressure 127/69 06/16/17 03:54 Pulse Oximetry 96 06/16/17 03:54 Height and Weight: Height 5 ft 7 in Weight 149 lb 11.102 oz Body Mass Index 23.2 - Constitutional General Appearance: Present: alert, no acute distress - Respiratory Exam Present: non-labored - Extremities Exam Extremities: Present: normal capillary refill - Surgical Site Incision: dressing intact, no drainage, other (New dressing applied. Wound looks good. Sutures in place.) - Lymphatic Lymphatic: Absent: adenopathy - Neurological Exam Present: no deficits - Psychiatric Exam Present: alert - Wound Management Right Foot Wound Type: Diabetic Foot Ulcer Surrounding Tissue Appearance: Bright Red Drainage Description: Serosanguineous Drainage Amount: Small Primary Dressing: Gauze Pad - Labs Result Diagrams: 06/15/17 07:19 06/16/17 04:24 Abnormal lab results 06/15/17 Range/Units 07:19 Glucose 208 H (75-110) MG/DL C-Reactive Protein 55.4 H (0-9) MG/L H & H 06/13/17 06/14/17 06/15/17 Range/Units 03:51 03:30 07:19 Hgb 8.3 L D 8.1 L 8.1 L (13.5-17.5) GM/DL Hct 25.9 L D 24.9 L 25.4 L (41-53) % Orthopedic Assessment and Plan (1) Osteomyelitis of right foot Status: Acute Assessment and Plan: S/P amputation of the right 4th and 5th MT ray on 06/12/17. Antibiotics as outlined by Dr Juares. ASA and SCDs for DVT coverage. Mobilize with PT. WBAT on the heel. Discharge planning per Case Management. Hospital Course Summary Disclaimer: The visit summary below is not to be considered part of the above Progress Note. Hospital Course: Plan: Acute on chronic anemia Osteomyelitis R 4th and 5th metatarsal bones, and proximal phalanx of the fifth toe with associated Abscess, s/p amputation R 4th and 5th ray amputations 06/12/17. Superficial wound culture with MRSA. DM II, poorly controlled (Hgb A1c 12.6). Peripheral neuropathy secondary to diabetes. HTN. PCN allergy (tachycardia), however, per records, he has taken Augmentin prescribed by Dr. Mina for 2 weeks. Chronic back pain Suspect CK D-creatinine on admission 1.6 [id number]-6.6 06/12/17 Superficial wound culture growing staph - on vanco and merrem (pcn allergy) - follow up on surgical cultures to hopefully de-escalate ATBX tomorrow. Await surgical margins for ATBX duration. Increased pain control post-operatively Follow blood sugars. Renal function improved. 06/13/17 POD #1. Overall, Oscar appears to be doing well. Pain is well controlled. Continue pain medications with bowel motivation. Wound culture revealed multi-drug resistant MRSA. Based on sensitivities, will continue current antimicrobial treatment with Vancomycin and Merrem. Awaiting additional treatment recommendations from Dr. Juares. Appreciate her time and expertise. Will discuss with Dr. Glass possible discontinuation of merrem. Blood sugars remain variable. A1c significantly elevated at 12.7. Will continue current regimen with Humalog 75/25 10 units BID with sliding scale insulin as needed. Continue to monitor blood sugars closely. May consider consult to Dr. Rose for additional recommendations. Blood pressure elevated. History of hypertension without current treatment listed. Given comorbidities, will start lisinopril 10mg daily and metoprolol 12.5mg BID. Will place on telemetry to monitor cardiac function closely. Mild hyperkalemia noted with potassium at 5.2. History of hyperkalemia prior to admission. Will give lasix 20 IV x 1 dose now and recheck BMp in AM. Pre-ablumin low at 13.5 concerning for protein calorie malnutrition. Will consult dietary for additional recommendations. Encourage incentive spirometry for pulmonary toileting. Encourage participation in therapy to improve functional abilities. Hemoglobin continues to trend down at 8.3. Patient remains asymptomatic. Continue to monitor acute blood loss anemia. No evidence of acute bleeding. Recheck CBC and BMP in AM to monitor blood counts, electrolytes and renal function. 06/14/17 POD#2 *POD #2 Continue Meropenem and Vanco with pharmacy following. Await pathology prior to narrowing therapy. Could potentially use Doxycycline on dismissal. *DM2, uncontrolled. A1c 12.6 Will change insulin to 70/30 NPH/Reg as he will likely need to be dismissed on this given unfunded status. Continue sliding scale. Increased him scheduled dosing to 12 units BID. *JULIA now resolved- SCr back to normal. Continue Lisinopril. *HTN controlled. Continue statin. *DVT prophylaxis- On LMWH. Decrease ASA to 81mg daily from BID. 06/15/17 POD#[address] Juares: Continue Vancomycin. With his h/o poorly controlled DM, she would favor more aggressive IV antibiotics until the pathology margins are documented to be negative. She recommends cipro and flagyl orally, since he was on Invanz for 10 days prior to this wound culture. He could potentially be changed to Vancomycin 2gm IV daily for ease of outpatient infusion. As surgical path report may be resulted today, will hold off on starting a PICC line. Patient is agreeable to PICC if needed. Also reports he will have the ability to come in for daily infusions. He was started on iron yesterday for his acute on chronic anemia. Hemoglobin is stable. Insulin switched to NPH/regular 70/30 for cost savings. This change was made last evening, so we'll need to trend blood sugars out a bit more prior to adjusting.
[2017-06-16] MEDS: NS 1,000 ML IV SCH ×2 (08:03→13:33)
[2017-06-16] MEDS: ASPIRIN *EC* 81 MG TABLET PO SCH (08:34)
[2017-06-16] MEDS: ENOXAPARIN 40 MG/0.4 ML INJECTION SQ SCH (08:34)
[2017-06-16] MEDS: INSULIN NPH/REG 70/30 INJECTION SQ SCH ×2 (08:34→18:02)
[2017-06-16] MEDS: MetroNIDAZOLE 500 MG TABLET PO SCH ×2 (08:35→18:39)
[2017-06-16] MEDS: NIFEREX FORTE 150 CAPSULE PO SCH (08:35)
[2017-06-16] MEDS: CIPROFLOXACIN 500 MG TABLET PO SCH (08:35)
[2017-06-16] MEDS: INSULIN ASPART 100unit/ml INJECTION SQ PRN ×2 (10:22→16:50)
[2017-06-16 11:34] VITALS: RESP 18
[2017-06-16] MEDS: VANCOMYCIN 2,500 MG in NS 500ml 500 ML IV SCH (14:20)
[2017-06-16 15:58] VITALS: BP 180/88; PULSE 83; TEMP 96.1; O2SAT 99
--- NOTE | 2017-06-16 17:55 | Discharge Summary ---
<Candice Oakes - Last Filed: 06/16/17 17:51> Discharge Information Date of admission: 06/11/17 13:19 Anticipated date of discharge: 06/16/17 Attending Physician: Rhoda Glass MD Consults: Consulting Provider: Saúl Gaffney Reason For Exam: Right foot wound Consulting Provider: Ruth Juares Reason For Exam: foot wound - Discharge Diagnosis (1) Diabetic foot ulcer Status: Acute Acute on chronic anemia Osteomyelitis R 4th and 5th metatarsal bones, and proximal phalanx of the fifth toe with associated Abscess, s/p amputation R 4th and 5th ray amputations 06/12/17. Superficial wound culture with MRSA. DM II, poorly controlled (Hgb A1c 12.6). Peripheral neuropathy secondary to diabetes. HTN. PCN allergy (tachycardia), however, per records, he has taken Augmentin prescribed by Dr. Mina for 2 weeks. Chronic back pain Suspect CK D-creatinine on admission 1.6 Leueywerzohz-OWQ-4.6 - Procedures Procedures: DATE OF SURGERY 06/12/2017 PREOPERATIVE DIAGNOSIS Right foot fourth and fifth metatarsal osteomyelitis. POSTOPERATIVE DIAGNOSIS Right foot fourth and fifth metatarsal osteomyelitis. PROCEDURE Right fourth fifth ray amputations. SURGEON Karrie Gaffney MD - Laboratory Labs: Admission labs 06/13/17 06/13/17 03:51 03:51 WBC 6.4 RBC 2.91 L Hgb 8.3 L D Hct 25.9 L D Plt Count 405 H Sodium 143 Potassium 5.2 H D Chloride 110 H Carbon Dioxide 27 BUN 12.0 Creatinine 1.1 D Glucose 145 H Calcium 8.5 Dismissal labs 06/15/17 06/15/17 06/16/17 07:19 07:19 04:24 WBC 5.7 RBC 2.85 L Hgb 8.1 L Hct 25.4 L Plt Count 354 Sodium 142 Potassium 4.4 Chloride 107 Carbon Dioxide 28 BUN 12.0 Creatinine 1.1 GFR Calculation 68 Glucose 208 H Calcium 8.5 C-Reactive Protein 55.4 H - Microbiology Blood cultures were negative Wound culture: Staphylococcus, MRSA resistant to ciprofloxacin, clindamycin, erythromycin, levofloxacin, and oxacillin. Sensitive to doxycycline, gentamicin , linezolid, tetracycline, Bactrim, vancomycin - Radiology Radiology: Date of Exam: 06/11/17 Indication: ulcer ball 4th 5th rule out osteo PROCEDURE: MR foot RT wo/w con: Findings: Prior amputation of the right fourth toe. There is a rim-enhancing abscess surrounding the fifth metatarsal head and proximal phalanx of the fifth toe. This is best seen on coronal image 10 and axial images 13 and 14. This measures approximately 2.3 x 1 cm in size on the axial images. There is a cutaneous tract noted extending to the plantar foot. Edema is again noted throughout the intrinsic foot musculature. The flexor and extensor tendons are grossly intact. Mild motion artifact present. There is diffuse edema throughout the fifth metatarsal bone. Small areas of edema within the fourth metatarsal head and fourth metatarsal base. Diffusely abnormal T1 hypointense, T2 hyperintense signal and enhancement throughout the proximal phalanx of the fifth toe. There is osseous erosion or destruction of the distal fifth metatarsal shaft and head. The fourth metatarsal neck is deformed which could be due to old trauma. There is enhancement within the fourth metatarsal head and to a lesser degree the shaft and base. Diffuse enhancement throughout the fifth metatarsal bone and proximal phalanx of the fifth toe. Subtle enhancement in the fifth middle and distal phalanges. No other areas of bone edema or bone enhancement appreciated. Impression: 1. Extensive osteomyelitis with complete involvement of the fifth metatarsal bone and proximal phalanx of the fifth toe with associated abscess. There is also osteomyelitic involvement of the fourth metatarsal head. 2. Less extensive edema and enhancement within the fourth metatarsal shaft and base is also suspicious for osteomyelitis. - Pathology Surgical pathology report: Evaluations of the margins of the specimen is difficult as the specimen received in several parts. It appears that inflammatory changes focally extend to the soft tissue margins. The separate long fragment of bone is involved with chronic osteomyelitis of the apparent distal end. The apparent sampled proximal and demonstrates one area of active bone resorption and fibrosis without plasma cells or acute inflammation. The significance of this focus of bone remodeling is questionable, but continued close follow-up at this site is recommended. History of Present Illness HPI: Patient is a 61 year old male who has been admitted to the hospitalists services in 2013 with a right foot wound. He received outpatient wound treatment through April 2014 at which time he moved back to his original home country of [place]. He has lived there since that time. He reports that he has been having increased foot problems since April 21 at which time he had the foot wound "cleaned out". He reports he has been on Cilostazol 100mg (which appears to be a medication to help with circulation). He also reports he has been on injections of Invanz for the past 10 days. He decided to come back to the [facility] to get further assistance with his foot wound and arrived yesterday. Today he presented to the outpatient wound care center as he had been there in the past during 2013. He was recommended to come to the emergency room for acute evaluation and treatment. Upper studies were obtained. White count was normal 6.2, hemoglobin 9.6, hematocrit 29.8, platelet count 487. Sodium is 144, potassium slightly elevated at 5.6, BUN 29, creatinine 1.6, glucose 274. Venous lactate 1.4, pro calcitonin negative. An MRI of the right foot was obtained, and unfortunately did reveal extensive osteomyelitis with involvement in the 5th metatarsal and proximal phalange. He of the 5th toe associated with abscess. Dense of edema within the 4th metatarsal shaft as well. Blood cultures were obtained. Patient was placed on IV Levaquin. The hospitalist services were contacted and accepted patient for inpatient admission for further evaluation and treatment. It is expected that his stay will be greater than 2 overnights. Mr Zuñiga is seen today on arrival to the surgical unit. All information gained through online Romansh translation. When asked about recent healthcare changes since patient was here in 2013. He reports he has had a 20 pound weight loss over the past 2 months. He has received eye injections, for unknown reason. Likely secondary to diabetes. He reports also he has recently been told he was having problems with his kidneys. Objective Vital signs: Temperature 96.1 F L 06/16/17 15:58 Pulse Rate 83 06/16/17 16:00 Respiratory Rate 18 06/16/17 15:58 Blood Pressure 180/88 H 06/16/17 15:58 Pulse Oximetry 99 06/16/17 15:58 Height/Weight/BMI: Height 1.7 m Weight 66.6 kg Body Mass Index 23.2 - Constitutional Present: no acute distress, well nourished, well developed - Routine Respiratory Exam Present: CTA bilaterally. Absent: wheezes - Routine Cardiovascular Exam Present: RRR. Absent: murmur - Routine Abdominal Exam Present: soft, normoactive bowel sounds, non distended. Absent: tenderness - Routine Extremities Exam Present: no edema, normal capillary refill Comments: Right foot is wrapped with an Marcelo bandage and in a boot - Routine Skin Exam Present: dry, warm - Routine Neurological Exam Present: alert - Routine Lymphatic Exam Lymphatic: Absent: adenopathy - Routine Psychiatric Exam Present: normal affect, cooperative Hospital Course This is a general summary of the patient's hospital course. For more details refer to the complete medical record. Hospital course: Patient admitted for osteomyelitis. Consult was placed to COLTON Brown. He was started on vancomycin and Merrem. His wound culture revealed multi-drug resistant MRSA. He had right fourth and fifth ray amputation performed by Dr. Gaffney on 06/12/17. Prior to discharge his antibiotics were changed to Cipro and Flagyl orally and he was continued on the vancomycin. Dr. Juares would like patient to continue on these antibiotics for 6 weeks and she will see him in the wound clinic in 2-3 weeks. He'll have CBC and CMP weekly with results faxed to her office. He'll come in daily to the [facility] for his vancomycin infusion. [facility] pharmacy will manage Vanco dosing and monitoring. Ortho recommends aspirin 81 mg twice a day for 6 weeks. He will see Dr. Gaffney back in the wound clinic in one week. Patient was admitted with an A1c of 12.7. He was initially put on a regimen of Humalog 75/25 twice a day with sliding scale as needed. This was later switched to 70/30 NPH/regular as this will be cheaper for him post hospitalization. He had diabetic education during his stay. He was dismissed with a glucometer, test strips, lancets and syringes along with a voucher to help with his insulin. He was also placed on lisinopril and a statin for his diabetes. Metoprolol was also added in for tighter blood pressure control. He is to follow -up with Lin Hutchinson APRN at [facility] next week. He has an appointment tomorrow afternoon at [facility] to review his medications. Patient had mild hyperkalemia on admission. He was given Lasix for this and had no further elevations in potassium throughout his stay. His hemoglobin on admission was 9.6 down to 8.1 on dismissal. This will need to be followed on an outpatient basis. He was started on iron supplementation. Time spent with patient: greater than 35 minutes Discharge Plan - Discharge Disposition Discharge Date: 06/16/17 Disposition: 01 Discharged Home, Self-Care *Condition: Stable Reason For Visit (Visit label in EMR): ostomyelitis, diabetic foot ulcer right - Discharge Medications *Discharge Medications: New Aspirin *EC* [Ecotrin] 81 mg PO BID #84 tab Ciprofloxacin [Cipro] 500 mg PO Q12HR #84 tab Iron Polysacc/B-12/Folic Acid [Niferex Forte] 1 cap PO BID #60 cap Lisinopril [Prinivil] 20 mg PO DAILY #30 tab Metoprolol Tartrate [Lopressor] 12.5 mg PO BID #60 tab Vancomycin [Vancocin] 2,500 mg IV 1400 #42 vial Acetaminophen [Tylenol] 500 mg PO Q4H PRN #30 tab PRN Reason: Pain Atorvastatin [Lipitor] 20 mg PO HS #30 tab Insulin NPH/Reg 70/30 [Novolin 70/30] 17 unit SQ BIDI 30 Days #30 bottle MetroNIDAZOLE [Flagyl] 500 mg PO BIDWM #84 tab Oxycodone/Acetaminophen 5/325 [Percocet 5/325] 1 tab PO Q4H PRN #30 tab PRN Reason: Pain Discontinued Cilostazol 100 mg PO BID Insulin Lispro Protamin/Lispro [Humalog Mix 75-25 Kwikpen] 14 unit SQ BID - Discharge Packet/Instructions *Diet: diabetic/carbhohydrate controlled diet *Activity: per ortho *Pain Management/Treatment: Tylenol (acetaminophen) and Percocet as needed. Do not exceed 3000mg of acetaminophen in [address] Gaffney's office. *Wound Care: Per Dr. Gaffney. Additional Instructions: Come to the hospital daily for your antibiotic infusion as Cosme (shelter case manager) discussed with you. Your pain medication needs to be refilled through Dr. Gaffney's office. *Expected Signs/Symptoms: Decreasing pain, less drainage from wound *Notify Physician if: you develop fever or increasing pain *During Business Hours Contact: Dr. Gaffney's office or wound clinic *After Business Hours Contact: [facility] and ask for orthopedic doctor fabrication operator *Pending Lab/Results: No Pending Lab - Referrals/Follow Up *Referrals/Follow Up: Ruth Juares MD [Physician] - 3 Weeks (See Dr Juares in wound clinic) Lin Hutchinson APRN [Advanced Practice Nurse] - (Patient has an appointment with Lin GEORGE June 22. [facility] Saúl Gaffney MD [Physician] - 1 Week (see Dr. Gaffney in wound clinic) - Patient Handouts <Rhoda Glass - Last Filed: 06/16/17 19:35> Discharge Information Consults: - Discharge Diagnosis (1) Diabetic foot ulcer Status: Acute - Laboratory Labs: Objective Vital signs: Hospital Course This is a general summary of the patient's hospital course. For more details refer to the complete medical record. Hospital course: I have independently evaluated and examined this patient. I reviewed the chart, the patient's history, and the PRECISION OPTICS TECHNICIAN/PA's documented findings as above. We discussed and formulated the assessment and plan as above with additions as below: Oscar was seen with his daughter at the bedside. The telesales advisor service was utilized in my discussion with him in conjunction with case management's review of medications. The patient reports he was on blood pressure medications and possibly on something for circulation before he was hospitalized but he is unsure if he's had testing in [place] before hospitalization to evaluate peripheral circulation. He denied dyspnea or pain. Respirations are nonlabored with good airflow and clear breath sounds, abdomen is benign, right ankle is without edema and surgical site on the right foot is dressed. Stable for discharge on oral Cipro/Flagyl. PICC line was placed yesterday to permit continuation of vancomycin daily-dose 2.5 g every 24 hours. Patient will discharged following completion of today's dose and report to [facility] infusion center tomorrow to continue his IV antibiotics. Case management extensively involved in assisting with discharge medications. Time spent with patient: discharge greater than 30 minutes
== END 2017-06-16 20:05 | disposition home or self-care (01) | DRG 617 ==
LOC: ED 10:40 → SUATTDRO 13:19 → SRG 13:19
PROVIDERS: ADMIT Internal Medicine; ATTEND Internal Medicine

== ENCOUNTER 2017-06-24 10:38 | Inpatient (IN) ==
[2017-06-24] MEDS ORDERED: NOZIN NASAL SWAB NAS ONE (10:47)
[2017-06-24] MEDS ORDERED: PHARMACY CONSULT - OTHER MEDS MC SCH (11:00)
[2017-06-24] MEDS ORDERED: Oxycodone/Acetaminophen 5/325 1 TAB PO PRN (11:14)
[2017-06-24] MEDS ORDERED: ACETAMINOPHEN 500 MG TABLET PO PRN (11:14)
--- NOTE | 2017-06-24 11:21 | Pharmacy Consult-Antibiotics ---
Pharmacy Consult-Vancomycin - Consult Information Mr Lira has been a patient in Infusion Therapy and have been monitoring his vancomycin dose there. Will continue vancomycin 1500mg IV q24h. Thank you.
[2017-06-24] MEDS: NS 1,000 ML IV SCH (11:31)
[2017-06-24] MEDS: VANCOMYCIN 1,500 MG in NS 250ml 500 ML IV SCH (13:56)
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
[2017-06-24] MEDS: INSULIN ASPART 100unit/ml INJECTION SQ PRN ×2 (15:57→20:32)
[2017-06-24] MEDS ORDERED: INSULIN NPH/REG 70/30 INJECTION SQ SCH (17:00)
[2017-06-24] MEDS: INSULIN NPH/REG 70/30 INJECTION SQ SCH (17:45)
[2017-06-24] MEDS: MetroNIDAZOLE 500 MG TABLET PO SCH (17:45)
[2017-06-24] MEDS: HYDRALAZINE 20 MG/ML INJECTION IVP PRN (20:31)
[2017-06-24] MEDS: ATORVASTATIN 20 MG TABLET PO SCH (20:32)
[2017-06-24] MEDS: NIFEREX FORTE 150 CAPSULE PO SCH (20:32)
[2017-06-24] MEDS: CIPROFLOXACIN 500 MG TABLET PO SCH (20:32)
[2017-06-24] MEDS: ASPIRIN *EC* 81 MG TABLET PO SCH (20:32)
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
[2017-06-25] MEDS: NS 1,000 ML IV SCH ×5 (02:29→20:27)
[2017-06-25] MEDS: ASPIRIN *EC* 81 MG TABLET PO SCH ×2 (09:57→20:28)
[2017-06-25] MEDS: MetroNIDAZOLE 500 MG TABLET PO SCH ×2 (09:57→16:41)
[2017-06-25] MEDS: NIFEREX FORTE 150 CAPSULE PO SCH ×2 (09:58→20:27)
[2017-06-25] MEDS: CIPROFLOXACIN 500 MG TABLET PO SCH ×2 (09:58→20:27)
[2017-06-25] MEDS ORDERED: NS 1,000 ML IV SCH (11:30)
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
--- NOTE | 2017-06-25 13:10 | Progress Note ---
- Date 06/25/17 Subjective: Pt denies any change from yesterday, no acute complaints. Objective Vital signs: Temperature 98.4 F 06/25/17 11:56 Pulse Rate 92 06/25/17 11:56 Respiratory Rate 18 06/25/17 11:56 Blood Pressure 174/87 H 06/25/17 11:56 Pulse Oximetry 96 06/25/17 11:56 Height/Weight/BMI: Height 5 ft 7 in Weight 67.9 kg Body Mass Index 23.2 - Constitutional Present: no acute distress - Routine HEENT Exam Head: Present: normocephalic, atraumatic Eye: Present: EOMI, PERRL ENT: Present: mucous membranes moist - Routine Respiratory Exam Present: CTA bilaterally. Absent: wheezes - Routine Cardiovascular Exam Present: RRR, no murmur - Routine Abdominal Exam Present: soft, non distended, non tender - Routine Extremities Exam Present: no edema. Absent: cyanosis, clubbing - Routine Skin Exam Present: intact, dry. 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 Gaffney. Planning for I&D of foot wound today Will continue with diabetes management, current home insulin, Novolin NPH 70/30 , 20 units twice a day. Will plan to hold morning's dose of insulin preoperatively. Monitor Accuchecks Continue with PO Cipro twice a day, PO Flagyl twice a day, IV vancomycin for ongoing treatment of osteomyelitis with MRSA. Consult has been placed to Dr. Juares. She has been following patient in outpatient setting. Monitor blood pressure and hold lisinopril 20 in preop but cont. after that, Lopressor will 12.5 mg twice a day and Lipitor chronic meds Continue with aspirin twice a day for ongoing anticoagulation on the DVT prophylaxis. Monitor hemoglobin as patient does have anemia present on admission, continue on iron supplementation- Niferex BID Check CBC and BMP tomorrow morning to follow blood counts, renal function, electrolytes - Physician Narrative Narrative: Date: 06/25/17 Time: 1253 Hospital Course Summary Disclaimer: The visit summary below is not to be considered part of the above Progress Note. 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 Gaffney. Planning for I&D of foot wound tomorrow 06/25/17. Will continue with diabetes management, current home insulin, Novolin NPH 70/30 , 20 units twice a day. Will plan to hold tomorrow morning's dose of insulin preoperatively. Monitor Accuchecks, NPO after midnight Continue with PO Cipro twice a day, PO Flagyl twice a day, IV vancomycin for ongoing treatment of osteomyelitis with MRSA. Consult has been placed to Dr. Juares. She has been following patient in outpatient setting. Monitor blood pressure and continue on lisinopril 20, Lopressor will 12.5 mg twice a day and Lipitor chronic meds Continue with aspirin twice a day for ongoing anticoagulation on the DVT prophylaxis. Monitor hemoglobin as patient does have anemia present on admission, continue on iron supplementation- Niferex BID Check CBC and BMP tomorrow morning to follow blood counts, renal function, electrolytes Discussed with attending, Dr. Nayak Time of discharge medical care will return to primary care provider. [facility], Lin Evangelina-[employer] 06/25/17 13:10 Pt stable, following along with ortho. Consulted for medical management. Holding insulin and lisinopril this am d/t procedure. Will cont. afterwards.
[2017-06-25] MEDS ORDERED: PROPOFOL 1,000 MG/100 ML VIAL IV ONE (13:18)
[2017-06-25] MEDS ORDERED: FentaNYL 100 MCG/2 ML INJECTION ONE (13:23)
[2017-06-25] MEDS ORDERED: EPHEDRINE 50mg/ml INJECTION ONE (13:55)
[2017-06-25] MEDS ORDERED: HYDROMORPHONE 2 MG/ML INJECTION IVP PRN (14:14)
--- NOTE | 2017-06-25 14:18 | Anesthesia Postoperative Note ---
- Date and Time Date: 06/25/17 Time: 14:18 - Status Patient Participated in Evaluation: Patient Participated in Person Vital Signs: Temperature 98.4 F 06/25/17 11:56 Pulse Rate 92 06/25/17 11:56 Respiratory Rate 18 06/25/17 11:56 Blood Pressure 174/87 H 06/25/17 11:56 Pulse Oximetry 96 06/25/17 11:56 Respiratory Function: Airway Patent EKG: Sinus Rhythm Mental Status: Alert and Oriented Pain Intensity: 0 Hydration: IV Infusing Complications During Recover: None Apparent - Follow-Up Instructions Instructions: Per Surgeon
[2017-06-25] MEDS: VANCOMYCIN 1,500 MG in NS 250ml 500 ML IV SCH (16:35)
[2017-06-25] MEDS: LISINOPRIL 20 MG TABLET PO SCH (16:40)
[2017-06-25 16:54] VITALS: BMI 23.4
[2017-06-25] MEDS: INSULIN NPH/REG 70/30 INJECTION SQ SCH (18:22)
[2017-06-25] MEDS: HYDRALAZINE 20 MG/ML INJECTION IVP PRN (19:13)
[2017-06-25] MEDS: ATORVASTATIN 20 MG TABLET PO SCH (20:27)
[2017-06-26] MEDS: INSULIN ASPART 100unit/ml INJECTION SQ PRN ×3 (00:16→20:48)
--- NOTE | 2017-06-26 06:57 | Operative Note ---
DATE OF PROCEDURE 06/25/2017 PREOPERATIVE DIAGNOSIS Right foot amputation site surgical dehiscence. POSTOPERATIVE DIAGNOSIS Right foot amputation site surgical dehiscence. PROCEDURE Surgical irrigation, debridement with placement of wound VAC to right foot amputation site. SURGEON Saúl Gaffney MD DIRECTOR OF OPERATIONS SUPPORT None. COMPLICATIONS None. ANESTHESIA TIVA EBL AND FLUIDS Please see Anesthetic records. DESCRIPTION OF PROCEDURE Mr. Soraya Zuñiga and his right foot were identified and marked in the preoperative holding area. He was brought back to the operating suite and placed supine on the operating table. He was placed under general anesthesia. The right lower extremity was prepped and draped in my normal sterile fashion. Time-out was performed. The previous sutures were removed. He had previously had a 4th and 5th ray amputation. He had necrosis at the skin edges centrally within the wound. The most distal and most proximal aspects of the wound seemed to be healing well. I sharply debride all necrotic skin as well as subcutaneous tissue deep within the wound. There was no exposed bone deep within the wound. There was no foul odor and no signs of retained abscess. The wound was then thoroughly irrigated with normal saline using 3 liters total. Once I was ensured all necrotic tissue had been removed, our wound nurse came in to apply an instill VERAFLO wound VAC. He was then allowed to awaken from general anesthesia and taken to the recovery room under the care of Anesthesia. He tolerated the procedure well and there were no complications. JADON
[2017-06-26] MEDS: LISINOPRIL 20 MG TABLET PO SCH (08:27)
[2017-06-26] MEDS: CIPROFLOXACIN 500 MG TABLET PO SCH ×2 (08:28→20:48)
[2017-06-26] MEDS: ASPIRIN *EC* 81 MG TABLET PO SCH ×2 (08:28→20:49)
[2017-06-26] MEDS: NIFEREX FORTE 150 CAPSULE PO SCH ×2 (08:28→20:48)
[2017-06-26] MEDS: MetroNIDAZOLE 500 MG TABLET PO SCH ×2 (08:28→18:00)
[2017-06-26] MEDS: INSULIN NPH/REG 70/30 INJECTION SQ SCH ×2 (08:35→19:28)
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
[2017-06-26] MEDS: NS 1,000 ML IV SCH ×2 (10:33→14:25)
--- NOTE | 2017-06-26 11:42 | Progress Note ---
- Date 06/26/17 Subjective: Pt reports he is doing well after procedure yesterday. Denies n/v/d, f/c, cp or sob. Objective Vital signs: Temperature 96.2 F L 06/26/17 08:00 Pulse Rate 86 06/26/17 08:00 Respiratory Rate 18 06/26/17 08:00 Blood Pressure 143/75 H 06/26/17 08:00 Pulse Oximetry 98 06/26/17 08:00 Height/Weight/BMI: Height 5 ft 7 in Weight 67.9 kg Body Mass Index 23.4 - Constitutional Present: no acute distress - Routine HEENT Exam Head: Present: normocephalic, atraumatic Eye: Present: EOMI, PERRL ENT: Present: mucous membranes moist - Routine Respiratory Exam Present: CTA bilaterally. Absent: wheezes - Routine Cardiovascular Exam Present: RRR, no murmur - Routine Abdominal Exam Present: soft, non distended, non tender - Routine Extremities Exam Present: edema, amputation. Absent: cyanosis, clubbing - Routine Skin Exam Present: intact, dry. Absent: erythema - Routine Neurological Exam Present: alert, oriented X3 Results - Labs CBC & Chem 7: 06/24/17 11:31 06/25/17 07:53 Microbiology Results: Microbiology 06/25/17 13:40 Foot, Right Gram Stain - Final 06/25/17 13:40 Foot, Right Surgical Culture - Preliminary Culture Initiated - Results Pending Assessment and Plan (1) Wound dehiscence Current visit: Yes Status: Acute Assessment and Plan: Impression Right foot diabetic wound dehiscence-s/p I&D Osteomyelitis- right foot- currently under treatment Status post amputation of 4th and 5th metatarsals-06/12/17 Poorly controlled Type 2 DM -last hemoglobin A1c 12.7 (06/11/17) Anemia- Hgb 8.4 on admission HTN 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 Gaffney. Will continue with diabetes management, current home insulin, Novolin NPH 70/30 , 20 units twice a day. Monitor Accuchecks Continue with PO Cipro twice a day, PO Flagyl twice a day, IV vancomycin for ongoing treatment of osteomyelitis with MRSA. Consult has been placed to Dr. Juares. She has been following patient in outpatient setting. Cont. lisinopril 20, Lopressor 12.5 mg twice a day and Lipitor Continue with aspirin twice a day for ongoing anticoagulation on the DVT prophylaxis. Monitor hemoglobin as patient does have anemia present on admission, continue on iron supplementation- Niferex BID - Physician Narrative Narrative: Date: 06/26/17 Time: 1124 Hospital Course Summary Disclaimer: The visit summary below is not to be considered part of the above Progress Note. 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 Gaffney. Planning for I&D of foot wound tomorrow 06/25/17. Will continue with diabetes management, current home insulin, Novolin NPH 70/30 , 20 units twice a day. Will plan to hold tomorrow morning's dose of insulin preoperatively. Monitor Accuchecks, NPO after midnight Continue with PO Cipro twice a day, PO Flagyl twice a day, IV vancomycin for ongoing treatment of osteomyelitis with MRSA. Consult has been placed to Dr. Juares. She has been following patient in outpatient setting. Monitor blood pressure and continue on lisinopril 20, Lopressor will 12.5 mg twice a day and Lipitor chronic meds Continue with aspirin twice a day for ongoing anticoagulation on the DVT prophylaxis. Monitor hemoglobin as patient does have anemia present on admission, continue on iron supplementation- Niferex BID Check CBC and BMP tomorrow morning to follow blood counts, renal function, electrolytes Discussed with attending, Dr. Nayak Time of discharge medical care will return to primary care provider. [facility], Lin Evangelina-REMOTE BROADCAST ENGINEER 06/25/17 13:10 Pt stable, following along with ortho. Consulted for medical management. Holding insulin and lisinopril this am d/t procedure. Will cont. afterwards. 06/26/17 11:42 Pt stable post procedure. Cont. to follow with ortho and manage chronic conditions.
[2017-06-26] MEDS: VANCOMYCIN 1,500 MG in NS 250ml 500 ML IV SCH (13:27)
[2017-06-26] MEDS: HYDRALAZINE 20 MG/ML INJECTION IVP PRN (15:50)
--- NOTE | 2017-06-26 16:22 | Orthopedic Progress Note ---
Date: Date: 06/26/17 Time: 1618 Subjective/Severity of Illness: Pt is in bed using his phone and appears comfortable. No increased pain. Wound vac functioning. Orthopedic Objective PO Vital signs: Temperature 96 F L 06/26/17 15:00 Pulse Rate 86 06/26/17 16:00 Respiratory Rate 16 06/26/17 15:00 Blood Pressure 149/76 H 06/26/17 16:00 Pulse Oximetry 99 06/26/17 15:00 Height and Weight: Height 5 ft 7 in Weight 149 lb 14.629 oz Body Mass Index 23.4 - Constitutional General Appearance: Present: no acute distress, well developed, well nourished - Respiratory Exam Present: non-labored - Cardiovascular Exam Present: pedal pulses intact - Surgical Site Incision: dressing intact Drains Present: negative pressure therapy - Integumentary Exam Present: pink, warm, dry. Absent: erythema - Neurological Exam Present: no deficits - Psychiatric Exam Present: alert, normal affect - Labs Result Diagrams: 06/24/17 11:31 06/26/17 12:23 Abnormal lab results 06/26/17 06/26/17 Range/Units 12:23 12:23 Chloride 109 H (98-107) MEQ/L Glucose 202 H (75-110) MG/DL Calculated Osmolality 282 H (261-280) MOSM/KG Vancomycin Trough 10.63 L (15-20) UG/ML H & H 06/24/17 Range/Units 11:31 Hgb 8.4 L (13.5-17.5) GM/DL Hct 26.7 L (41-53) % Orthopedic Assessment and Plan (1) Wound dehiscence Status: Acute Assessment and Plan: Continue IV antibiotics and wound vac therapy. Hospitalist managing medical needs. BPs have been a little elevated. CM for discharge planning. Hospital Course Summary Disclaimer: The visit summary below is not to be considered part of the above Progress Note. 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 Gaffney. Planning for I&D of foot wound tomorrow 06/25/17. Will continue with diabetes management, current home insulin, Novolin NPH 70/30 , 20 units twice a day. Will plan to hold tomorrow morning's dose of insulin preoperatively. Monitor Accuchecks, NPO after midnight Continue with PO Cipro twice a day, PO Flagyl twice a day, IV vancomycin for ongoing treatment of osteomyelitis with MRSA. Consult has been placed to Dr. Juares. She has been following patient in outpatient setting. Monitor blood pressure and continue on lisinopril 20, Lopressor will 12.5 mg twice a day and Lipitor chronic meds Continue with aspirin twice a day for ongoing anticoagulation on the DVT prophylaxis. Monitor hemoglobin as patient does have anemia present on admission, continue on iron supplementation- Niferex BID Check CBC and BMP tomorrow morning to follow blood counts, renal function, electrolytes Discussed with attending, Dr. Nayak Time of discharge medical care will return to primary care provider. [facility], Lin Hutchinson-SHOSHANA 06/25/17 13:10 Pt stable, following along with ortho. Consulted for medical management. Holding insulin and lisinopril this am d/t procedure. Will cont. afterwards. 06/26/17 11:42 Pt stable post procedure. Cont. to follow with ortho and manage chronic conditions.
[2017-06-26] MEDS: ATORVASTATIN 20 MG TABLET PO SCH (20:48)
[2017-06-27] MEDS: NS 1,000 ML IV SCH ×2 (03:00→20:46)
--- NOTE | 2017-06-27 07:51 | Pharmacy Consult-Antibiotics ---
Pharmacy Consult-Vancomycin - Laboratory Information WBC 7.6 T/MM3 (4.5-11.0) 06/24/17 11:31 BUN 14.0 MG/DL (9-20) 06/26/17 12:23 Creatinine 1.2 MG/DL (0.8-1.5) 06/26/17 12:23 Vancomycin Trough 10.63 UG/ML (15-20) L 06/26/17 12:23 - Consult Information VANCOMYCIN CONSULT: (late entry - for 06/25/17) IMM is a 61 yo male whose right foot amputation site has necrotic subcutaneous tissue exposed within the wound which has dehisced. There is purple/red changes over the dorsum of the foot. There was no foul odor. The patient is currently on Ciprofloxacin 500 mg po q12h, Metronidazole 500 mg po twice a day, and Vancomycin. Vancomycin Trough = 10.63 mcg/ml. Today's S Cr = 1.2 mg/dl. Estimated Cr Cl ~ 60 ml?min. The vancomycin level was low, so I am changing the Vancomycin to 2,000 mg IV q24hrs starting 06/27/17 @0800. The pharmacy will continue to monitor and make adjustments accordingly. Thank you for the Vancomycin Dosing Protocol, Esteban Hugo, Pharmacist.
[2017-06-27] MEDS: INSULIN NPH/REG 70/30 INJECTION SQ SCH ×2 (09:13→17:07)
[2017-06-27] MEDS: CIPROFLOXACIN 500 MG TABLET PO SCH ×2 (09:13→20:45)
[2017-06-27] MEDS: LISINOPRIL 20 MG TABLET PO SCH (09:13)
[2017-06-27] MEDS: NIFEREX FORTE 150 CAPSULE PO SCH ×2 (09:14→20:45)
[2017-06-27] MEDS: ASPIRIN *EC* 81 MG TABLET PO SCH ×2 (09:14→20:45)
[2017-06-27] MEDS: MetroNIDAZOLE 500 MG TABLET PO SCH ×2 (09:14→17:07)
--- NOTE | 2017-06-27 10:58 | Orthopedic Progress Note ---
Date: Date: 06/27/17 Time: 1055 Subjective/Severity of Illness: No new complaints today. He denies pain. Orthopedic Objective Vital signs: Temperature 96.9 F 06/27/17 08:51 Pulse Rate 87 06/27/17 08:51 Respiratory Rate 16 06/27/17 08:51 Blood Pressure 162/86 H 06/27/17 08:51 Pulse Oximetry 98 06/27/17 08:51 Height and Weight: Height 5 ft 7 in Weight 66.5 kg Body Mass Index 23.4 - Constitutional General Appearance: Present: no acute distress, well developed, well nourished - Respiratory Exam Present: non-labored - Cardiovascular Exam Present: Regular Rate/Rhythm, pedal pulses intact Capillary Refill: < 2-3 Seconds - Extremities Exam Present: amputation. Absent: cyanosis, clubbing - Integumentary Exam Present: pink, warm, dry. Absent: erythema - Psychiatric Exam Present: alert - Wound Management Right Foot Comments: With wound VAC removed he has good granulation tissue present within the wound without signs of necrosis skin edges are wet and white in appearance. - Labs Result Diagrams: 06/24/17 11:31 06/27/17 07:52 Abnormal lab results 06/26/17 06/26/17 06/27/17 Range/Units 12:23 12:23 07:52 Sodium 145 H (134-144) MEQ/L Chloride 109 H 111 H (98-107) MEQ/L Glucose 202 H 125 H (75-110) MG/DL Calculated Osmolality 282 H (261-280) MOSM/KG Albumin 3.3 L (3.5-5.0) G/DL Vancomycin Trough 10.63 L (15-20) UG/ML H & H 06/24/17 Range/Units 11:31 Hgb 8.4 L (13.5-17.5) GM/DL Hct 26.7 L (41-53) % Orthopedic Assessment and Plan (1) Wound dehiscence Status: Acute Assessment and Plan: Continue IV antibiotics and wound vac therapy. Hospitalist managing medical needs. May be discharged with wound VAC change every 2-3 days and IV antibiotics per Dr. Juares. Hospital Course Summary Disclaimer: The visit summary below is not to be considered part of the above Progress Note. 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 Gaffney. Planning for I&D of foot wound tomorrow 06/25/17. Will continue with diabetes management, current home insulin, Novolin NPH 70/30 , 20 units twice a day. Will plan to hold tomorrow morning's dose of insulin preoperatively. Monitor Accuchecks, NPO after midnight Continue with PO Cipro twice a day, PO Flagyl twice a day, IV vancomycin for ongoing treatment of osteomyelitis with MRSA. Consult has been placed to Dr. Jaures. She has been following patient in outpatient setting. Monitor blood pressure and continue on lisinopril 20, Lopressor will 12.5 mg twice a day and Lipitor chronic meds Continue with aspirin twice a day for ongoing anticoagulation on the DVT prophylaxis. Monitor hemoglobin as patient does have anemia present on admission, continue on iron supplementation- Niferex BID Check CBC and BMP tomorrow morning to follow blood counts, renal function, electrolytes Discussed with attending, Dr. Nayak Time of discharge medical care will return to primary care provider. [facility] Lin Hutchinson-SHOSHANA 06/25/17 13:10 Pt stable, following along with ortho. Consulted for medical management. Holding insulin and lisinopril this am d/t procedure. Will cont. afterwards. 06/26/17 11:42 Pt stable post procedure. Cont. to follow with ortho and manage chronic conditions. Orthopedic Procedures - Orthopedic Splinting/Casting Injury #1 Comments: Wound VAC was removed to right fourth and fifth ray amputation site. A new wound VAC was applied with black foam. It was such 125 mmHg suction continuous. He tolerated this well.
[2017-06-27] MEDS: INSULIN ASPART 100unit/ml INJECTION SQ PRN ×2 (13:13→18:26)
--- NOTE | 2017-06-27 16:14 | Progress Note ---
- Date 06/27/17 Subjective: Pt has no acute complaints. Denies any cp, sob. Objective Vital signs: Temperature 96.2 F L 06/27/17 11:22 Pulse Rate 83 06/27/17 11:22 Respiratory Rate 18 06/27/17 11:22 Blood Pressure 167/86 H 06/27/17 11:22 Pulse Oximetry 97 06/27/17 11:22 Height/Weight/BMI: Height 5 ft 7 in Weight 66.5 kg Body Mass Index 23.4 - Constitutional Present: no acute distress - Routine HEENT Exam Head: Present: normocephalic, atraumatic Eye: Present: EOMI, PERRL - Routine Respiratory Exam Present: CTA bilaterally. Absent: rales - Routine Cardiovascular Exam Present: RRR, no murmur - Routine Abdominal Exam Present: soft, non distended, non tender - Routine Extremities Exam Present: no edema. Absent: cyanosis, clubbing - Routine Skin Exam Present: intact, dry. Absent: erythema - Routine Neurological Exam Present: alert, oriented X3 Results - Labs CBC & Chem 7: 06/24/17 11:31 06/27/17 07:52 Microbiology Results: Microbiology 06/25/17 13:40 Foot, Right Gram Stain - Final 06/25/17 13:40 Foot, Right Surgical Culture - Preliminary Staphylococcus aureus Assessment and Plan (1) Wound dehiscence Current visit: Yes Status: Acute Assessment and Plan: Impression Right foot diabetic wound dehiscence-s/p I&D Osteomyelitis- right foot- currently under treatment 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 Gaffney. Will continue with diabetes management, current home insulin, Novolin NPH 70/30 , 20 units twice a day. Monitor Accuchecks Continue with PO Cipro twice a day, PO Flagyl twice a day, IV vancomycin for ongoing treatment of osteomyelitis with MRSA. Consult has been placed to Dr. Juares. She has been following patient in outpatient setting. Cont. lisinopril 20, Lopressor 12.5 mg twice a day and Lipitor Continue with aspirin twice a day for ongoing anticoagulation on the DVT prophylaxis. Monitor hemoglobin as patient does have anemia present on admission, continue on iron supplementation- Niferex BID - Physician Narrative Narrative: Date: 06/27/17 Time: 1611 Hospital Course Summary Disclaimer: The visit summary below is not to be considered part of the above Progress Note. 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 Gaffney. Planning for I&D of foot wound tomorrow 06/25/17. Will continue with diabetes management, current home insulin, Novolin NPH 70/30 , 20 units twice a day. Will plan to hold tomorrow morning's dose of insulin preoperatively. Monitor Accuchecks, NPO after midnight Continue with PO Cipro twice a day, PO Flagyl twice a day, IV vancomycin for ongoing treatment of osteomyelitis with MRSA. Consult has been placed to Dr. Juares. She has been following patient in outpatient setting. Monitor blood pressure and continue on lisinopril 20, Lopressor will 12.5 mg twice a day and Lipitor chronic meds Continue with aspirin twice a day for ongoing anticoagulation on the DVT prophylaxis. Monitor hemoglobin as patient does have anemia present on admission, continue on iron supplementation- Niferex BID Check CBC and BMP tomorrow morning to follow blood counts, renal function, electrolytes Discussed with attending, Dr. Nayak Time of discharge medical care will return to primary care provider. [facility] Lin Hutchinson-SHOSHANA 06/25/17 13:10 Pt stable, following along with ortho. Consulted for medical management. Holding insulin and lisinopril this am d/t procedure. Will cont. afterwards. 06/26/17 11:42 Pt stable post procedure. Cont. to follow with ortho and manage chronic conditions. 06/27/17 16:13 No acute changes. Cont. to follow with ortho and manage chronic conditions.
[2017-06-27] MEDS: ATORVASTATIN 20 MG TABLET PO SCH (20:45)
[2017-06-28] MEDS: LISINOPRIL 20 MG TABLET PO SCH (08:59)
[2017-06-28] MEDS: NIFEREX FORTE 150 CAPSULE PO SCH ×2 (08:59→20:44)
[2017-06-28] MEDS: CIPROFLOXACIN 500 MG TABLET PO SCH ×2 (09:00→20:44)
[2017-06-28] MEDS: INSULIN NPH/REG 70/30 INJECTION SQ SCH ×2 (09:00→17:19)
[2017-06-28] MEDS: MetroNIDAZOLE 500 MG TABLET PO SCH ×2 (09:00→17:18)
[2017-06-28] MEDS: ASPIRIN *EC* 81 MG TABLET PO SCH ×2 (09:00→20:44)
--- NOTE | 2017-06-28 09:47 | Orthopedic Progress Note ---
Date: Date: 06/28/17 Time: 945 Subjective/Severity of Illness: No new complaints. No pain. Orthopedic Objective Vital signs: Temperature 98.1 F 06/28/17 07:25 Pulse Rate 85 06/28/17 07:25 Respiratory Rate 24 06/28/17 07:25 Blood Pressure 148/79 H 06/28/17 07:25 Pulse Oximetry 96 06/28/17 07:25 Height and Weight: Height 5 ft 7 in Weight 67.4 kg Body Mass Index 23.4 - Constitutional General Appearance: Present: no acute distress, well developed, well nourished - Respiratory Exam Present: non-labored - Cardiovascular Exam Capillary Refill: < 2-3 Seconds - Extremities Exam Present: no edema. Absent: cyanosis, clubbing - Integumentary Exam Present: pink, warm, dry. Absent: erythema - Neurological Exam Present: no deficits - Labs Result Diagrams: 06/24/17 11:31 06/27/17 07:52 H & H 06/24/17 Range/Units 11:31 Hgb 8.4 L (13.5-17.5) GM/DL Hct 26.7 L (41-53) % Orthopedic Assessment and Plan (1) Wound dehiscence Status: Acute Assessment and Plan: Continue IV antibiotics and wound vac therapy. Hospitalist managing medical needs. May be discharged with wound VAC change every 2-3 days and IV antibiotics per Dr. Juares. Hospital Course Summary Disclaimer: The visit summary below is not to be considered part of the above Progress Note. 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 Gaffney. Planning for I&D of foot wound tomorrow 06/25/17. Will continue with diabetes management, current home insulin, Novolin NPH 70/30 , 20 units twice a day. Will plan to hold tomorrow morning's dose of insulin preoperatively. Monitor Accuchecks, NPO after midnight Continue with PO Cipro twice a day, PO Flagyl twice a day, IV vancomycin for ongoing treatment of osteomyelitis with MRSA. Consult has been placed to Dr. Juares. She has been following patient in outpatient setting. Monitor blood pressure and continue on lisinopril 20, Lopressor will 12.5 mg twice a day and Lipitor chronic meds Continue with aspirin twice a day for ongoing anticoagulation on the DVT prophylaxis. Monitor hemoglobin as patient does have anemia present on admission, continue on iron supplementation- Niferex BID Check CBC and BMP tomorrow morning to follow blood counts, renal function, electrolytes Discussed with attending, Dr. Nayak Time of discharge medical care will return to primary care provider. [facility], Lin Evangelina-SHOSHANA 06/25/17 13:10 Pt stable, following along with ortho. Consulted for medical management. Holding insulin and lisinopril this am d/t procedure. Will cont. afterwards. 06/26/17 11:42 Pt stable post procedure. Cont. to follow with ortho and manage chronic conditions. 06/27/17 16:13 No acute changes. Cont. to follow with ortho and manage chronic conditions.
[2017-06-28] MEDS: INSULIN ASPART 100unit/ml INJECTION SQ PRN ×3 (10:38→20:37)
[2017-06-28] MEDS: NS 1,000 ML IV SCH (13:28)
--- NOTE | 2017-06-28 14:02 | Progress Note ---
- Date 06/28/17 Subjective: Pt doing well, has no acute complaints, denies n/v/d, f/c. Objective Vital signs: Temperature 96.4 F L 06/28/17 11:32 Pulse Rate 79 06/28/17 11:32 Respiratory Rate 16 06/28/17 11:32 Blood Pressure 177/86 H 06/28/17 11:32 Pulse Oximetry 98 06/28/17 11:32 Height/Weight/BMI: Height 5 ft 7 in Weight 67.4 kg Body Mass Index 23.4 - Constitutional Present: no acute distress - Routine HEENT Exam Head: Present: normocephalic, atraumatic Eye: Present: EOMI, PERRL - Routine Cardiovascular Exam Present: RRR, no murmur - Routine Abdominal Exam Present: soft, non distended, non tender - Routine Extremities Exam Present: no edema. Absent: cyanosis, clubbing - Routine Skin Exam Present: intact, dry. 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 Gaffney. Will continue with diabetes management, current home insulin, Novolin NPH 70/30 , 20 units twice a day. Monitor Accuchecks Continue with PO Cipro twice a day, PO Flagyl twice a day, IV vancomycin for ongoing treatment of osteomyelitis with MRSA. Consult has been placed to Dr. Juares. She has been following patient in outpatient setting. Cont. lisinopril 20, Lopressor 12.5 mg twice a day and Lipitor Continue with aspirin twice a day for ongoing anticoagulation on the DVT prophylaxis. Monitor hemoglobin as patient does have anemia present on admission, continue on iron supplementation- Niferex BID - Physician Narrative Narrative: Date: 06/28/17 Time: 1401 Hospital Course Summary Disclaimer: The visit summary below is not to be considered part of the above Progress Note. 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 Gaffney. Planning for I&D of foot wound tomorrow 06/25/17. Will continue with diabetes management, current home insulin, Novolin NPH 70/30 , 20 units twice a day. Will plan to hold tomorrow morning's dose of insulin preoperatively. Monitor Accuchecks, NPO after midnight Continue with PO Cipro twice a day, PO Flagyl twice a day, IV vancomycin for ongoing treatment of osteomyelitis with MRSA. Consult has been placed to Dr. Juares. She has been following patient in outpatient setting. Monitor blood pressure and continue on lisinopril 20, Lopressor will 12.5 mg twice a day and Lipitor chronic meds Continue with aspirin twice a day for ongoing anticoagulation on the DVT prophylaxis. Monitor hemoglobin as patient does have anemia present on admission, continue on iron supplementation- Niferex BID Check CBC and BMP tomorrow morning to follow blood counts, renal function, electrolytes Discussed with attending, Dr. Nayak Time of discharge medical care will return to primary care provider. [facility], Lin Hutchinson-SUPERVISOR DOCK 06/25/17 13:10 Pt stable, following along with ortho. Consulted for medical management. Holding insulin and lisinopril this am d/t procedure. Will cont. afterwards. 06/26/17 11:42 Pt stable post procedure. Cont. to follow with ortho and manage chronic conditions. 06/27/17 16:13 No acute changes. Cont. to follow with ortho and manage chronic conditions.
[2017-06-28] MEDS: HYDRALAZINE 20 MG/ML INJECTION IVP PRN ×2 (15:43→20:42)
[2017-06-28] MEDS: ATORVASTATIN 20 MG TABLET PO SCH (20:44)
[2017-06-29] MEDS: NS 1,000 ML IV SCH ×2 (00:08→09:42)
[2017-06-29] MEDS: INSULIN NPH/REG 70/30 INJECTION SQ SCH ×2 (09:38→17:52)
[2017-06-29] MEDS: LISINOPRIL 20 MG TABLET PO SCH (09:41)
[2017-06-29] MEDS: CIPROFLOXACIN 500 MG TABLET PO SCH ×2 (09:42→21:05)
[2017-06-29] MEDS: NIFEREX FORTE 150 CAPSULE PO SCH ×2 (09:42→21:05)
[2017-06-29] MEDS: ASPIRIN *EC* 81 MG TABLET PO SCH ×2 (09:42→21:07)
[2017-06-29] MEDS: MetroNIDAZOLE 500 MG TABLET PO SCH ×2 (09:42→17:53)
[2017-06-29] MEDS: INSULIN ASPART 100unit/ml INJECTION SQ PRN ×2 (11:16→17:28)
--- NOTE | 2017-06-29 13:58 | Progress Note ---
- Date 06/29/17 Subjective: Pt reports no change. Denies any n/v/d, f/c, cp or sob. Objective Vital signs: Temperature 97.4 F 06/29/17 11:56 Pulse Rate 82 06/29/17 11:56 Respiratory Rate 16 06/29/17 11:56 Blood Pressure 150/71 H 06/29/17 11:56 Pulse Oximetry 97 06/29/17 11:56 Height/Weight/BMI: Height 5 ft 7 in Weight 68 kg Body Mass Index 23.4 - Constitutional Present: no acute distress - Routine HEENT Exam Head: Present: normocephalic, atraumatic Eye: Absent: EOMI, PERRL - Routine Respiratory Exam Present: CTA bilaterally. Absent: wheezes, crackles - Routine Cardiovascular Exam Present: RRR, no murmur - Routine Abdominal Exam Present: soft, non distended, non tender - Routine Extremities Exam Present: no edema. Absent: cyanosis, clubbing - Routine Skin Exam Present: intact, dry. 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 Gaffney. Will continue with diabetes management, current home insulin, Novolin NPH 70/30 , 20 units twice a day. Monitor Accuchecks Continue with PO Cipro twice a day, PO Flagyl twice a day, IV vancomycin for ongoing treatment of osteomyelitis with MRSA. Consult has been placed to Dr. Juares. She has been following patient in outpatient setting. Cont. lisinopril 20, Lopressor 12.5 mg twice a day and Lipitor Continue with aspirin twice a day for ongoing anticoagulation on the DVT prophylaxis. Monitor hemoglobin as patient does have anemia present on admission, continue on iron supplementation- Niferex BID - Physician Narrative Narrative: Date: 06/29/17 Time: 1356 Hospital Course Summary Disclaimer: The visit summary below is not to be considered part of the above Progress Note. 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 Gaffney. Planning for I&D of foot wound tomorrow 06/25/17. Will continue with diabetes management, current home insulin, Novolin NPH 70/30 , 20 units twice a day. Will plan to hold tomorrow morning's dose of insulin preoperatively. Monitor Accuchecks, NPO after midnight Continue with PO Cipro twice a day, PO Flagyl twice a day, IV vancomycin for ongoing treatment of osteomyelitis with MRSA. Consult has been placed to Dr. Juares. She has been following patient in outpatient setting. Monitor blood pressure and continue on lisinopril 20, Lopressor will 12.5 mg twice a day and Lipitor chronic meds Continue with aspirin twice a day for ongoing anticoagulation on the DVT prophylaxis. Monitor hemoglobin as patient does have anemia present on admission, continue on iron supplementation- Niferex BID Check CBC and BMP tomorrow morning to follow blood counts, renal function, electrolytes Discussed with attending, Dr. Nayak Time of discharge medical care will return [facility] primary care provider[facility] Lin Evangelina-ACCESS SPECIALIST 06/25/17 13:10 Pt stable, following along with ortho. Consulted for medical management. Holding insulin and lisinopril this am d/t procedure. Will cont. afterwards. 06/26/17 11:42 Pt stable post procedure. Cont. to follow with ortho and manage chronic conditions. 06/27/17 16:13 No acute changes. Cont. to follow with ortho and manage chronic conditions.
[2017-06-29] MEDS: AMLODIPINE 2.5 MG TABLET PO SCH (16:48)
[2017-06-29] MEDS: ATORVASTATIN 20 MG TABLET PO SCH (21:05)
[2017-06-30] MEDS: LISINOPRIL 20 MG TABLET PO SCH (08:30)
[2017-06-30] MEDS: CIPROFLOXACIN 500 MG TABLET PO SCH (08:30)
[2017-06-30] MEDS: NIFEREX FORTE 150 CAPSULE PO SCH (08:30)
[2017-06-30] MEDS: MetroNIDAZOLE 500 MG TABLET PO SCH (08:30)
[2017-06-30] MEDS: ASPIRIN *EC* 81 MG TABLET PO SCH (08:31)
[2017-06-30] MEDS: INSULIN NPH/REG 70/30 INJECTION SQ SCH (08:33)
[2017-06-30] MEDS: AMLODIPINE 2.5 MG TABLET PO SCH (08:40)
--- NOTE | 2017-06-30 08:55 | ID Progress Note ---
Subjective Date: 06/30/17 Subjective: Mr. Zuñiga denies fever, nausea, diarrhea. Does report some pain near R ankle. Exam Vital Signs: Temperature 97.1 F 06/30/17 07:34 Pulse Rate 80 06/30/17 07:34 Respiratory Rate 18 06/30/17 07:34 Blood Pressure 165/71 H 06/30/17 07:34 Pulse Oximetry 97 06/30/17 04:00 Height/Weight/BMI: Height 1.7 m Weight 66.5 kg Body Mass Index 23.4 - Constitutional Present: no acute distress, well nourished, well developed - Routine HEENT Exam Head: Present: normocephalic, atraumatic Eye: Present: EOMI, PERRL ENT: Present: mucous membranes moist - Routine Neck Exam Present: supple - Routine Respiratory Exam Present: CTA bilaterally - Routine Cardiovascular Exam Present: RRR - Routine Abdominal Exam Present: soft, normoactive bowel sounds, non distended, non tender - Routine Extremities Exam Present: edema (trace to 1+ R foot, wound VAC on). Absent: cyanosis, clubbing - Routine Skin Exam Absent: rash Comments: R foot wound with VAC on lateral side - Routine Neurological Exam Present: alert, CN II-XII intact. Absent: motor deficit - Routine Psychiatric Exam Present: normal affect Results - Labs CBC & Chem 7: 06/24/17 11:31 06/30/17 08:35 Microbiology Results: Microbiology 06/25/17 13:40 Foot, Right Gram Stain - Final 06/25/17 13:40 Foot, Right Surgical Culture - Final Staphylococcus aureus, MRSA Impression: Osteomyelitis R 4th and 5th metatarsal bones, and proximal phalanx of the fifth toe with associated abscess, s/p amputation R 4th and 5th ray amputations . Superficial wound culture with MRSA. Wound dehiscence, s/p I&D 06/25 with no obvious bone involvement, wound cultures with MRSA. DM II, IR, poorly controlled (Hgb A1c 12.6). Peripheral neuropathy secondary to diabetes. HTN. PCN allergy (tachycardia), however, per records, he has taken Augmentin prescribed by Dr. Mina for 2 weeks. Recommendation: Continue Vancomycin. He needs to complete a 6 week course which will go through 07/23/17. I'll d/c the oral cipro and flagyl. Pharmacy is managing the Vancomycin. I wonder if he could be discharged to complete his Vanco as an outpatient. I'll be out later this week, I'll return next week.
--- NOTE | 2017-06-30 09:26 | Progress Note ---
- Date 06/30/17 Subjective: Patient is seen lying in bed. Tele-chicken and fish cleaner present for translation. He has no concerns. Feeling fine. Pain is controlled. Points to an area around the lateral malleolus stating that is the area which is tender. Objective Vital signs: Temperature 97.1 F 06/30/17 07:34 Pulse Rate 80 06/30/17 07:34 Respiratory Rate 18 06/30/17 07:34 Blood Pressure 165/71 H 06/30/17 07:34 Pulse Oximetry 97 06/30/17 04:00 Height/Weight/BMI: Height 1.7 m Weight 66.5 kg Body Mass Index 23.4 - Constitutional Present: no acute distress, well nourished, well developed - Routine Respiratory Exam Present: CTA bilaterally. Absent: wheezes - Routine Cardiovascular Exam Present: RRR. Absent: murmur - Routine Abdominal Exam Present: soft, normoactive bowel sounds, non distended. Absent: tenderness - Routine Extremities Exam Present: no edema, normal capillary refill Comments: mild tenderness around the lateral malleolus. No fluctuance is noted. Wound vac intact. - Routine Skin Exam Present: dry, warm - Routine Neurological Exam Present: alert, oriented X3, CN II-XII intact - Routine Lymphatic Exam Lymphatic: Absent: adenopathy - Routine Psychiatric Exam Present: normal affect Results - Labs CBC & Chem 7: 06/24/17 11:31 06/30/17 08:35 Microbiology Results: Microbiology 06/25/17 13:40 Foot, Right Gram Stain - Final 06/25/17 13:40 Foot, Right Surgical Culture - Final Staphylococcus aureus, MRSA Assessment and Plan (1) Wound dehiscence Current visit: Yes Status: Acute Assessment and Plan: Impression Right foot diabetic wound dehiscence-s/p I&D Osteomyelitis- right foot- currently under treatment 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 Gaffney. Will continue with diabetes management, continue Novolin NPH 70/30, 20 units before bkfast and increase supper dose from 20 to 22 units a day. Monitor Accuchecks Currently on PO Cipro twice a day, PO Flagyl twice a day, IV vancomycin for ongoing treatment of osteomyelitis with MRSA. Dr Juares continues to follow pt. Cont. lisinopril 20, Lopressor 12.5 mg twice a day and Lipitor. BP's acceptable. Continue with aspirin twice a day for ongoing anticoagulation on the DVT prophylaxis. Monitor hemoglobin as patient does have anemia present on admission, continue on iron supplementation- Niferex BID. Repeat CBC in am. - Physician Narrative Narrative: Date: 06/30/17 Time: 911 Hospital Course Summary Disclaimer: The visit summary below is not to be considered part of the above Progress Note. 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 Gaffney. Planning for I&D of foot wound tomorrow 06/25/17. Will continue with diabetes management, current home insulin, Novolin NPH 70/30 , 20 units twice a day. Will plan to hold tomorrow morning's dose of insulin preoperatively. Monitor Accuchecks, NPO after midnight Continue with PO Cipro twice a day, PO Flagyl twice a day, IV vancomycin for ongoing treatment of osteomyelitis with MRSA. Consult has been placed to Dr. Juares. She has been following patient in outpatient setting. Monitor blood pressure and continue on lisinopril 20, Lopressor will 12.5 mg twice a day and Lipitor chronic meds Continue with aspirin twice a day for ongoing anticoagulation on the DVT prophylaxis. Monitor hemoglobin as patient does have anemia present on admission, continue on iron supplementation- Niferex BID Check CBC and BMP tomorrow morning to follow blood counts, renal function, electrolytes Discussed with attending, Dr. Nayak Time of discharge medical care will return to primary care provider. [facility] Lin Hutchinson-SHOSHANA 06/25/17 13:10 Pt stable, following along with ortho. Consulted for medical management. Holding insulin and lisinopril this am d/t procedure. Will cont. afterwards. 06/26/17 11:42 Pt stable post procedure. Cont. to follow with ortho and manage chronic conditions. 06/27/17 16:13 No acute changes. Cont. to follow with ortho and manage chronic conditions. 06/30/17 09:37 Increase supper insulin from 20 to 22. Breakfast insulin to remain at 20U. Dr. Juares is seeing pt today. Continues with wound vac and guicho, lainey and lucrecia.
[2017-06-30 11:10] VITALS: BP 159/82; PULSE 76; RESP 16; TEMP 96.7; O2SAT 99
[2017-06-30] MEDS ORDERED: AMLODIPINE 5 MG TABLET PO SCH (11:11)
[2017-06-30] MEDS ORDERED: AMLODIPINE 2.5 MG TABLET PO ONE (12:00)
--- NOTE | 2017-06-30 13:11 | Orthopedic Progress Note ---
Date: Date: 06/30/17 Time: 1308 Subjective/Severity of Illness: Pt is doing well. Reports some pain laterally but overall doing well with minimal complaints. He was seen today by hospitalist service and Dr Juares. Will continue Vanco thru 07/23/17 to complete the 6 week course. Flagyl and Cipro were stopped today. Wound vac to be changed today. Orthopedic Objective PO Vital signs: Temperature 96.7 F L 06/30/17 11:09 Pulse Rate 76 06/30/17 11:09 Respiratory Rate 16 06/30/17 11:09 Blood Pressure 159/82 H 06/30/17 11:09 Pulse Oximetry 99 06/30/17 11:09 Height and Weight: Height 5 ft 7 in Weight 146 lb 9.718 oz Body Mass Index 23.4 - Constitutional General Appearance: Present: no acute distress, well developed, well nourished - Respiratory Exam Present: non-labored - Cardiovascular Exam Present: Regular Rate/Rhythm, pedal pulses intact - Surgical Site Incision: clean, dry, other (Wound healing well. No erythema. ) Drains Present: negative pressure therapy (Vac removed and wound is healing well. New vac applied today by wound team.) - Integumentary Exam Present: pink, warm, dry. Absent: erythema - Psychiatric Exam Present: alert, normal affect - Labs Result Diagrams: 06/24/17 11:31 06/30/17 08:35 Abnormal lab results 06/30/17 Range/Units 08:35 Vancomycin Trough 21.52 H* (15-20) UG/ML H & H 06/24/17 Range/Units 11:31 Hgb 8.4 L (13.5-17.5) GM/DL Hct 26.7 L (41-53) % Orthopedic Assessment and Plan (1) Wound dehiscence Status: Acute Assessment and Plan: Continue IV vanco thru 07/23/17 and wound vac therapy as needed. Hospitalist managing medical needs. Consider discharged with wound VAC change every 2-3 days and IV vanco x [address] Juares. Hospital Course Summary Disclaimer: The visit summary below is not to be considered part of the above Progress Note. 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 Gaffney. Planning for I&D of foot wound tomorrow 06/25/17. Will continue with diabetes management, current home insulin, Novolin NPH 70/30 , 20 units twice a day. Will plan to hold tomorrow morning's dose of insulin preoperatively. Monitor Accuchecks, NPO after midnight Continue with PO Cipro twice a day, PO Flagyl twice a day, IV vancomycin for ongoing treatment of osteomyelitis with MRSA. Consult has been placed to Dr. Juares. She has been following patient in outpatient setting. Monitor blood pressure and continue on lisinopril 20, Lopressor will 12.5 mg twice a day and Lipitor chronic meds Continue with aspirin twice a day for ongoing anticoagulation on the DVT prophylaxis. Monitor hemoglobin as patient does have anemia present on admission, continue on iron supplementation- Niferex BID Check CBC and BMP tomorrow morning to follow blood counts, renal function, electrolytes Discussed with attending, Dr. Nayak Time of discharge medical care will return to primary care provider. [facility], Lin Hutchinson-LOCAL COM[employer]ATION TRUCK DRIVER 06/25/17 13:10 Pt stable, following along with ortho. Consulted for medical management. Holding insulin and lisinopril this am d/t procedure. Will cont. afterwards. 06/26/17 11:42 Pt stable post procedure. Cont. to follow with ortho and manage chronic conditions. 06/27/17 16:13 No acute changes. Cont. to follow with ortho and manage chronic conditions. 06/30/17 09:37 Increase supper insulin from 20 to 22. Breakfast insulin to remain at 20U. Dr. Juares is seeing pt today. Continues with wound vac and cipro, flagyl and vanc.
--- NOTE | 2017-06-30 13:44 | Discharge Summary ---
Orthopedic Discharge Info Date of admission: 06/24/17 10:38 Primary care physician: Rhoda Glass MD Attending Physician: Saúl Gaffney MD Consults: 06/24/17 10:49 Physician Consult [CONS] Routine Consulting Provider: David Augustin Reason For Exam: medical managment Ordering Provider has Notified Lithographic Camera Operator: No Comment: patient has prevously cultured MRSA 06/24/17 11:03 Physician Consult [CONS] Routine Consulting Provider: Ruth Juares Reason For Exam: right foot diabetic wound amputation site dehiscen Ordering Provider has Notified Lithographic Camera Operator: No Comment: patient has prevously cultured MRSA - Discharge Diagnosis (1) Wound dehiscence Status: Acute - Procedures Procedures: Procedures Amputation of toe (12/17/13) Excisional debridement of wound, infection, or burn (01/05/14) Nonexcisional debridement of wound, infection or burn (01/05/14) Other fasciectomy (12/17/13) Other incision with drainage of skin and subcutaneous tissue (12/17/13) I&D right foot wound 06/25/17. - Laboratory Result Diagrams: 06/24/17 11:31 06/30/17 08:35 Laboratory: Abnormal lab results 06/30/17 Range/Units 08:35 Vancomycin Trough 21.52 H* (15-20) UG/ML H & H 06/24/17 Range/Units 11:31 Hgb 8.4 L (13.5-17.5) GM/DL Hct 26.7 L (41-53) % - Microbiology Microbiology 06/25/17 13:40 Foot, Right Gram Stain - Final 06/25/17 13:40 Foot, Right Surgical Culture - Final Staphylococcus aureus, MRSA Orthopedic Discharge HPI - HPI Comments Mr. Yogesh Zuñiga is a 61 year old male who is 12 days status post right 4th and 5th ray amputations. He has been at home and followed up in my office today. His wound has broken down. He has been receiving IV vancomycin daily. He had no new complaints and no constitutional symptoms. He will be admitted for IV antibiotics and surgical debridement as well as wound vac application if indicated. Orthopedic Hospital Course Hospital course: 06/24/17 Admission for worsening infection and breakdown of wound on the right foot following previous 4th and 5th MT ray amputation. Planning for I&D of foot wound tomorrow 06/25/17. Pt is poorly controlled diabetic. Last A1c was 12.7 on June 11, 2017. Continue with diabetes management, current home insulin, Novolin NPH 70/30, 20 units twice a day. Will plan to hold tomorrow morning's dose of insulin preoperatively. Monitor Accuchecks. Continue with PO Cipro twice a day, PO Flagyl twice a day, IV vancomycin for ongoing treatment of osteomyelitis with MRSA. Consult has been placed to Dr. Juares. She has been following patient in outpatient setting. 06/25/17 Pt stable. Hospitalist consulted for medical management. Holding insulin and lisinopril this am d/t procedure. Will cont. afterwards. Underwent I&D right foot with application of wound vac today. Continue IV Vanco and PO Cipro/Flagyl. Continue aspirin. 06/26/17 Pt stable post procedure. Continue to manage chronic conditions. Remain on same antibiotics. Vac changed today. 06/27/17 - 06/29/17 No acute changes. Cont. to follow and manage chronic conditions. Renal function and lytes all stable. 06/30/17 Increased supper insulin from 20 to 22. Breakfast insulin to remain at 20U. Dr. Juares recommends tx with IV vanco x 6 weeks and to d/c Cipro and Flagyl. Continue with wound vac and plan changes every 2-3 days. Changed today. Next change on 07/03/17 @ 10:30 am in wound clinic. IV vanco thru 07/23/17 as out patient. Pt to remain non wt bearing on this foot. F/U with Dr Gaffney in wound clinic during one of the appts for vac change. F/U with PCP regarding BP management. Pt BP has been elevated. Lisinopril increased from 20mg to 40mg Daily and Norvasc 5mg PO daily added during this hospitalization. Will need f/u as out pt to monitor BPs. Discharge Plan - Med Rec/Dispo Referrals/Follow Up: Wound Care[facility] [Non-Staff] - 07/03/17 10:30 am Additional Instructions: Keep the foot dry. Elevated to control swelling. No wt bearing on the right foot. Call for any concerns or problems. f/U in wound clinic as scheduled. Prescriptions: New Insulin NPH/Reg 70/30 [Novolin 70/30] 20 unit SQ ACB30 bottle Insulin NPH/Reg 70/30 [Novolin 70/30] 22 unit SQ ACS bottle Vancomycin [Vancocin] 1,500 mg IV Q24H vial Lisinopril [Prinivil] 2 tab PO DAILY #60 tab Amlodipine [Norvasc] 5 mg PO DAILY #30 tab Continue Aspirin *EC* [Ecotrin] 81 mg PO BID #84 tab Iron Polysacc/B-12/Folic Acid [Niferex Forte] 1 cap PO BID #60 cap Metoprolol Tartrate [Lopressor] 12.5 mg PO BID #60 tab Acetaminophen [Tylenol] 500 mg PO Q4H PRN #30 tab PRN Reason: Pain Atorvastatin [Lipitor] 20 mg PO HS #30 tab Oxycodone/Acetaminophen 5/325 [Percocet 5/325] 1 tab PO Q4H PRN #40 tab PRN Reason: Pain Discontinued Ciprofloxacin [Cipro] 500 mg PO Q12HR #84 tab Lisinopril [Prinivil] 20 mg PO DAILY #30 tab Vancomycin [Vancocin] 2,500 mg IV 1400 #42 vial Insulin NPH/Reg 70/30 [Novolin 70/30] 20 unit SQ BID MetroNIDAZOLE [Flagyl] 500 mg PO BIDWM #84 tab - Disposition 01 Discharged Home, Self-Care
[2017-06-30] MEDS: INSULIN ASPART 100unit/ml INJECTION SQ PRN (14:19)
--- NOTE | 2017-06-30 14:51 | Wound Care Progress Note ---
Wound Management - Patient Status Premedicated Prior to Dressing Change: No - Wound Right Foot Wound Type: Surgical Incision (Right 4 & 5th toe amp site) Wound Present on Admission?: Yes Length: 1.2 Width: 4.4 Depth: 0.6 Tunneling Location (o'clock): 9 (0.8) Wound Bed Appearance: Beefy Red Tanisha Wound Appearance: Edges Rolled Tunneling: Yes (9 is 0.8) Drainage Description: Serosanguineous Drainage Amount: Moderate Drainage Odor: Slight Odor Dressing Status: Changed Packing Type: Woundvac Sponge Number of Packing Pieces Removed?: 2 Number of Packing Pieces Placed?: 2 Primary Dressing: Transparent Drape Secondary Dressing: Trac Pad Dressing Change Date: 06/30/17 Dressing Change Time: 13:30 Dressing Change Patient Tolerance: Tolerated Well (Will come to clinic for vac change on Thursday.)
[2017-06-30] MEDS ORDERED: INSULIN NPH/REG 70/30 INJECTION SQ SCH (17:00)
[2017-07-01] MEDS ORDERED: INSULIN NPH/REG 70/30 INJECTION SQ SCH (07:30)
== END 2017-06-30 16:33 | disposition home or self-care (01) | DRG 464 ==
LOC: SRG 10:38
PROVIDERS: ADMIT Orthopaedic Surgery; ATTEND Orthopaedic Surgery